=== PATIENT | female | born 1960 | race Asian ===

== ENCOUNTER 2018-05-18 07:28 | Emergency (ER) | payer OTHER, SELFPAY ==
[2018-05-18 07:39] VITALS: BP 146/76; PULSE 82; RESP 18; TEMP 36.8; O2SAT 96; BMI 28.2
--- NOTE | 2018-05-18 07:47 | DI.US.S_ITS ---
PROCEDURE: US PERIPH VENOUS LOW EXTREM LT INDICATIONS: severe pain in LLE, calf, thigh. No injury TECHNIQUE: Real-time imaging, as well as color and pulse Doppler interrogation, were performed of the lower extremity deep veins from the inguinal ligament to the popliteal fossa. COMPARISON: None. FINDINGS: The deep veins are normally compressible, and free of intraluminal thrombus. Color and pulse Doppler demonstrate normal phasic intraluminal flow. There is normal augmentation response to distal compression maneuver. IMPRESSION: No DVT in the left lower extremity. Dictated by: Myrna Negron M.D. on 05/18/2018 at 9:00 Approved by: Myrna Negron M.D. on 05/18/2018 at 9:01
--- NOTE | 2018-05-18 08:00 | ED.EXTPRO ---
HPI - Extremity Problem General Chief complaint: Extremity Injury, Lower Stated complaint: foot pain Time Seen by Provider: 05/18/18 07:41 Source: patient and family Mode of arrival: ambulatory Limitations: no limitations History of Present Illness HPI Narrative: 57-year-old nonsmoking female presents with a chief complaint of gradually worsening left lower extremity pain in the absence of any injury. For almost 2 weeks she has had worsening left foot and lower leg pain and states she has not had any traumatic injury and denies any overuse type injury. She denies any fever or chills nor nausea or vomiting. She denies any long travel or history of clots. She has no back pain or any trouble with urination, bowel control or groin numbness. She denies weakness in her leg and just states that it is hot, sharp pain that is worse with any motion. She has got a history of gout and is taking gout medicine which did not help her at all. She states this is much different than gouty flare-ups she has had in the past. MD Complaint: extremity pain Onset (ago): week(s) Pain Consistency: constant Location: left Quality: burning and stabbing Radiation: proximal Relieving factors: rest Exacerbating factors: weight bearing, walking and exertion Associated symptoms: denies other symptoms Related Data Home Medications Medication Instructions Recorded Confirmed hydrocodone-acetaminophen 0 tab PO Q6HP PRN 05/18/18 05/18/18 Previous Rx's Medication Instructions Recorded cyclobenzaprine 10 mg PO TID PRN #14 tab 05/18/18 oxycodone 5 mg PO Q4-6H PRN #14 tab 05/18/18 Allergies Allergy/AdvReac Type Severity Reaction Status Date / Time ibuprofen [From ADVIL] Allergy Unknown Verified 05/18/18 07:38 Iodine and Iodide Containing Allergy Unknown Verified 05/18/18 07:38 Produc [IODINE AND IODIDE CONTAINING PRODUC] Review of Systems Review of Systems All systems reviewed & are unremarkable except as noted in HPI and below Constitutional Denies chills, Denies fever(s), Denies lethargy and Denies weakness Eyes Denies change in vision, Denies eye discharge, Denies irritation and Denies loss of vision ENT Ears, Nose, Mouth, and Throat: Denies change in voice, Denies neck pain and Denies sore throat Cardiovascular Denies chest pain, Denies irregular heart rhythm, Denies lightheadedness, Denies palpitations, Denies dyspnea, Denies dyspnea on exertion and Denies orthopnea Respiratory Denies cough, Denies dyspnea, Denies dyspnea on exertion and Denies wheezing Gastrointestinal Gastrointestinal: Denies abdominal pain, Denies change in bowel habits, Denies diarrhea, Denies nausea and Denies vomiting Genitourinary Denies hematuria, Denies flank pain, Denies urinary incontinence and Denies urinary urgency Musculoskeletal Reports myalgias, Denies neck pain and Reports radiating pain into limb Integumentary/Breasts Denies pruritus, Denies erythema, Denies rash and Denies wounds Neurologic Denies confusion, Denies loss of vision and Denies weakness Psychiatric Denies anxiety, Denies confusion, Denies depression, Denies homicidal ideation and Denies suicidal ideation Endocrine Denies palpitations Hematologic/Lymphatic Denies easy bruising Allergic/Immunologic Denies wheezing Exam Narrative Exam Narrative: GEN: AOx3 and in mild distress EYES: Pupils are equal, round, and reactive to light and accommodation. Extraoccular muscles are intact bilaterally. There is no subconjunctival hemorrhage or exudate. CHEST: Lungs are clear to auscultation bilaterally and free of wheezes, rales, or rhonchi. Heart rate is regular rhythm, there are no murmurs, clicks, rubs, or gallops. There is no chest wall tenderness. ABD: Abdomen is soft and nontender. There is no guarding or rebound. Bowel sounds are normal in all 4 quadrants. There is no mass or organomegaly. EXT: No obvious deformity, redness, swelling or external manifestation of pain. Strong, palpable dorsalis pedis pulse. Full sensation and range of motion of toes. 5/5 strength in her lower extremity. Palpation of foot, calf or thigh are intensely painful. No rash, swelling or induration SKIN: Warm, pink, and dry. No erythema or rash Initial Vital Signs Initial Vital Signs: Vital Signs Temperature 98.2 F 05/18/18 07:39 Pulse Rate 82 05/18/18 07:39 Respiratory Rate 18 05/18/18 07:39 Blood Pressure 146/76 H 05/18/18 07:39 Pulse Oximetry 96 05/18/18 07:39 Course Orders Ordered: ED Orders 05/18/18 07:47 US periph venous low extrem lt Stat 05/18/18 08:00 Complete Blood Count AUTO DIFF Stat Erythrocyte Sedimentation Rate Stat 05/18/18 08:40 Basic Metabolic Panel Stat C-Reactive Protein Quant Stat Discontinued Medications Methylprednisolone (Solu-Medrol 125 Mg Vial) 125 mg IV NOW ONE Stop: 05/18/18 07:48 Last Admin: 05/18/18 08:14 Dose: 125 mg Oxycodone/Acetaminophen (Percocet 5/325) 1 tab PO NOW ONE Stop: 05/18/18 08:19 Last Admin: 05/18/18 08:23 Dose: 1 tab Vital Signs - 8 hr 05/18/18 07:39 05/18/18 08:40 05/18/18 09:19 Temperature 98.2 F Pulse Rate 82 67 71 Respiratory Rate 18 16 16 Blood Pressure 146/76 H Blood Pressure [Right Arm] 148/73 H 140/70 Pulse Oximetry 96 97 97 MDM - Extremity (Nontraumatic) Lab Data Result diagrams: 05/18/18 08:00 05/18/18 08:40 Lab Results 05/18/18 05/18/18 Range/Units 08:00 08:40 WBC 9.6 (4.5-11.0) X10^3/uL RBC 4.74 (4.0-5.2) X10^6/uL Hgb 13.9 (12.0-16.0) g/dL Hct 41.3 (36-46) % MCV 87.0 (80-100) fL MCH 29.3 (26-34) PG MCHC 33.6 (30-36) % RDW 12.9 (11.6-14.8) % Plt Count 261 (150-400) X10^3/uL Neut % (Auto) 63.1 (50-75) % Lymph % (Auto) 27.3 (25-40) % [place] % (Auto) 6.7 (3-14) % Eos % (Auto) 2.4 (2-4) % Baso % (Auto) 0.5 (0-2) % Neut # (Auto) 6100 H (6420-2806) /uL ESR 13 (0-20) MM/HR Sodium 143 (137-145) mmol/L Potassium 4.5 (3.4-5.1) mmol/L Chloride 102 (98-107) mmol/L Carbon Dioxide 27 (22-32) mmol/L BUN 15 (7-17) mg/dL Creatinine 0.80 (0.52-1.04) mg/dL Estimated GFR > 60.0 (>60) mL/min BUN/Creatinine Ratio 18.8 (6-22) Glucose 105 H (70-100) mg/dL Calcium 10.1 (8.4-10.2) mg/dL C-Reactive Protein 1.3 H (<1.0) mg/dL Imaging Data Venous US: Radiologist's impression: [address] [id number] Ultrasound Report Signed Patient: Jazmin Zavala AMR#: [id number] : 9Acct:[id number] Age/Sex: 57 / FDate of Service: 05/18/18 Loc: ED Accession Number: [id number] Procedure: US periph venous low extrem lt Ordering Provider: Martin Ochoa D.O. PROCEDURE: US PERIPH VENOUS LOW EXTREM LT INDICATIONS: severe pain in LLE, calf, thigh. No injury TECHNIQUE: Real-time imaging, as well as color and pulse Doppler interrogation, were performed of the lower extremity deep veins from the inguinal ligament to the popliteal fossa. COMPARISON: None. FINDINGS: The deep veins are normally compressible, and free of intraluminal thrombus. Color and pulse Doppler demonstrate normal phasic intraluminal flow. There is normal augmentation response to distal compression maneuver. IMPRESSION: No DVT in the left lower extremity. Dictated by: Myrna Negron M.D. on 05/18/2018 at 9:00 Approved by: Myrna Negron M.D. on 05/18/2018 at 9:01 [facility] Narrative Medical decision making narrative: Multiple etiologies of the patient's nontraumatic pain considered Gout considered as a diagnosis but no redness, warmth or swelling noted, therefore thought less likely Cellulitis considered as an etiology but no redness, warmth or swelling, also pain is sharp and stabbing and radiates proximally making it less likely. No elevation of white cells or fever Vascular abnormality such as DVT or arterial occlusion considered but foot is warm with good cap refill and dorsalis pedis pulse. No swelling, redness nor pallor or point of hernia. Ultrasound for DVT unremarkable. Reticular apathy considered given radiation of pain, sharp and stabbing sensation and essentially normal exam regarding inflammatory and infectious etiologies Patient given return precautions and encouraged to follow up closely with her primary Discharge Plan Departure Patient Disposition: Home Clinical Impression: Acute leg pain Instructions: DI for Leg Pain Activity Restrictions/Additional Instructions: *You have been diagnosed with [ acute left leg and foot pain] *What to do: *Take medications as directed *Follow up with your primary care provider in 2-3 days, call for an appointment. Let them know you were seen in the Emergency Department and that we ask that you be seen in follow up *Return to ER if you should have any new, worsening or concerning symptoms, such as [ worsening pain, weakness, redness, swelling, or other bothersome symptoms] Prescriptions: New cyclobenzaprine 10 mg tablet 10 mg PO TID PRN (Reason: muscle spasm) Qty: 14 RF: 0 oxycodone 5 mg tablet 5 mg PO Q4-6H PRN (Reason: pain) Qty: 14 RF: 0 No Action hydrocodone-acetaminophen 5 MG/325 MG tablet PO Q6HP PRN (Reason: pain) RF: 0
--- NOTE | 2018-05-18 08:04 | ED_ITS ---
HPI - Extremity Problem General Chief complaint: Extremity Injury, Lower Stated complaint: foot pain Time Seen by Provider: 05/18/18 07:41 Source: patient and family Mode of arrival: ambulatory Limitations: no limitations History of Present Illness HPI Narrative: 57-year-old nonsmoking female presents with a chief complaint of gradually worsening left lower extremity pain in the absence of any injury. For almost 2 weeks she has had worsening left foot and lower leg pain and states she has not had any traumatic injury and denies any overuse type injury. She denies any fever or chills nor nausea or vomiting. She denies any long travel or history of clots. She has no back pain or any trouble with urination, bowel control or groin numbness. She denies weakness in her leg and just states that it is hot, sharp pain that is worse with any motion. She has got a history of gout and is taking gout medicine which did not help her at all. She states this is much different than gouty flare-ups she has had in the past. MD Complaint: extremity pain Onset (ago): week(s) Pain Consistency: constant Location: left Quality: burning and stabbing Radiation: proximal Relieving factors: rest Exacerbating factors: weight bearing, walking and exertion Associated symptoms: denies other symptoms Related Data Home Medications Medication Instructions Recorded Confirmed hydrocodone-acetaminophen 0 tab PO Q6HP PRN 05/18/18 05/18/18 Previous Rx's Medication Instructions Recorded cyclobenzaprine 10 mg PO TID PRN #14 tab 05/18/18 oxycodone 5 mg PO Q4-6H PRN #14 tab 05/18/18 Allergies Allergy/AdvReac Type Severity Reaction Status Date / Time ibuprofen [From ADVIL] Allergy Unknown Verified 05/18/18 07:38 Iodine and Iodide Containing Allergy Unknown Verified 05/18/18 07:38 Produc [IODINE AND IODIDE CONTAINING PRODUC] Review of Systems Review of Systems All systems reviewed & are unremarkable except as noted in HPI and below Constitutional Denies chills, Denies fever(s), Denies lethargy and Denies weakness Eyes Denies change in vision, Denies eye discharge, Denies irritation and Denies loss of vision ENT Ears, Nose, Mouth, and Throat: Denies change in voice, Denies neck pain and Denies sore throat Cardiovascular Denies chest pain, Denies irregular heart rhythm, Denies lightheadedness, Denies palpitations, Denies dyspnea, Denies dyspnea on exertion and Denies orthopnea Respiratory Denies cough, Denies dyspnea, Denies dyspnea on exertion and Denies wheezing Gastrointestinal Gastrointestinal: Denies abdominal pain, Denies change in bowel habits, Denies diarrhea, Denies nausea and Denies vomiting Genitourinary Denies hematuria, Denies flank pain, Denies urinary incontinence and Denies urinary urgency Musculoskeletal Reports myalgias, Denies neck pain and Reports radiating pain into limb Integumentary/Breasts Denies pruritus, Denies erythema, Denies rash and Denies wounds Neurologic Denies confusion, Denies loss of vision and Denies weakness Psychiatric Denies anxiety, Denies confusion, Denies depression, Denies homicidal ideation and Denies suicidal ideation Endocrine Denies palpitations Hematologic/Lymphatic Denies easy bruising Allergic/Immunologic Denies wheezing Exam Narrative Exam Narrative: GEN: AOx3 and in mild distress EYES: Pupils are equal, round, and reactive to light and accommodation. Extraoccular muscles are intact bilaterally. There is no subconjunctival hemorrhage or exudate. CHEST: Lungs are clear to auscultation bilaterally and free of wheezes, rales, or rhonchi. Heart rate is regular rhythm, there are no murmurs, clicks, rubs, or gallops. There is no chest wall tenderness. ABD: Abdomen is soft and nontender. There is no guarding or rebound. Bowel sounds are normal in all 4 quadrants. There is no mass or organomegaly. EXT: No obvious deformity, redness, swelling or external manifestation of pain. Strong, palpable dorsalis pedis pulse. Full sensation and range of motion of toes. 5/5 strength in her lower extremity. Palpation of foot, calf or thigh are intensely painful. No rash, swelling or induration SKIN: Warm, pink, and dry. No erythema or rash Initial Vital Signs Initial Vital Signs: Vital Signs Temperature 98.2 F 05/18/18 07:39 Pulse Rate 82 05/18/18 07:39 Respiratory Rate 18 05/18/18 07:39 Blood Pressure 146/76 H 05/18/18 07:39 Pulse Oximetry 96 05/18/18 07:39 Course Orders Ordered: ED Orders 05/18/18 07:47 US periph venous low extrem lt Stat 05/18/18 08:00 Complete Blood Count AUTO DIFF Stat Erythrocyte Sedimentation Rate Stat 05/18/18 08:40 Basic Metabolic Panel Stat C-Reactive Protein Quant Stat Discontinued Medications Methylprednisolone (Solu-Medrol 125 Mg Vial) 125 mg IV NOW ONE Stop: 05/18/18 07:48 Last Admin: 05/18/18 08:14 Dose: 125 mg Oxycodone/Acetaminophen (Percocet 5/325) 1 tab PO NOW ONE Stop: 05/18/18 08:19 Last Admin: 05/18/18 08:23 Dose: 1 tab Vital Signs - 8 hr 05/18/18 07:39 05/18/18 08:40 05/18/18 09:19 Temperature 98.2 F Pulse Rate 82 67 71 Respiratory Rate 18 16 16 Blood Pressure 146/76 H Blood Pressure [Right Arm] 148/73 H 140/70 Pulse Oximetry 96 97 97 MDM - Extremity (Nontraumatic) Lab Data Result diagrams: 05/18/18 08:00 05/18/18 08:40 Lab Results 05/18/18 05/18/18 Range/Units 08:00 08:40 WBC 9.6 (4.5-11.0) X10^3/uL RBC 4.74 (4.0-5.2) X10^6/uL Hgb 13.9 (12.0-16.0) g/dL Hct 41.3 (36-46) % MCV 87.0 (80-100) fL MCH 29.3 (26-34) PG MCHC 33.6 (30-36) % RDW 12.9 (11.6-14.8) % Plt Count 261 (150-400) X10^3/uL Neut % (Auto) 63.1 (50-75) % Lymph % (Auto) 27.3 (25-40) % [place] % (Auto) 6.7 (3-14) % Eos % (Auto) 2.4 (2-4) % Baso % (Auto) 0.5 (0-2) % Neut # (Auto) 6100 H (5264-7079) /uL ESR 13 (0-20) MM/HR Sodium 143 (137-145) mmol/L Potassium 4.5 (3.4-5.1) mmol/L Chloride 102 (98-107) mmol/L Carbon Dioxide 27 (22-32) mmol/L BUN 15 (7-17) mg/dL Creatinine 0.80 (0.52-1.04) mg/dL Estimated GFR > 60.0 (>60) mL/min BUN/Creatinine Ratio 18.8 (6-22) Glucose 105 H (70-100) mg/dL Calcium 10.1 (8.4-10.2) mg/dL C-Reactive Protein 1.3 H (<1.0) mg/dL Imaging Data Venous US: Radiologist's impression: [address] [address] Ultrasound Report Signed Patient: Jazmin Zavala AMR#: [id number] : 9Acct:[id number] Age/Sex: 57 / FDate of Service: 05/18/18 Loc: ED Accession Number: [id number] Procedure: US periph venous low extrem lt Ordering Provider: Martin Ochoa D.O. PROCEDURE: US PERIPH VENOUS LOW EXTREM LT INDICATIONS: severe pain in LLE, calf, thigh. No injury TECHNIQUE: Real-time imaging, as well as color and pulse Doppler interrogation, were performed of the lower extremity deep veins from the inguinal ligament to the popliteal fossa. COMPARISON: None. FINDINGS: The deep veins are normally compressible, and free of intraluminal thrombus. Color and pulse Doppler demonstrate normal phasic intraluminal flow. There is normal augmentation response to distal compression maneuver. IMPRESSION: No DVT in the left lower extremity. Dictated by: Myrna Negron M.D. on 05/18/2018 at 9:00 Approved by: Myrna Negron M.D. on 05/18/2018 at 9:01 [facility] Narrative Medical decision making narrative: Multiple etiologies of the patient's nontraumatic pain considered Gout considered as a diagnosis but no redness, warmth or swelling noted, therefore thought less likely Cellulitis considered as an etiology but no redness, warmth or swelling, also pain is sharp and stabbing and radiates proximally making it less likely. No elevation of white cells or fever Vascular abnormality such as DVT or arterial occlusion considered but foot is warm with good cap refill and dorsalis pedis pulse. No swelling, redness nor pallor or point of hernia. Ultrasound for DVT unremarkable. Reticular apathy considered given radiation of pain, sharp and stabbing sensation and essentially normal exam regarding inflammatory and infectious etiologies Patient given return precautions and encouraged to follow up closely with her primary Discharge Plan Departure Patient Disposition: Home Clinical Impression: Acute leg pain Instructions: DI for Leg Pain Activity Restrictions/Additional Instructions: *You have been diagnosed with [ acute left leg and foot pain] *What to do: *Take medications as directed *Follow up with your primary care provider in 2-3 days, call for an appointment. Let them know you were seen in the Emergency Department and that we ask that you be seen in follow up *Return to ER if you should have any new, worsening or concerning symptoms , such as [ worsening pain, weakness, redness, swelling, or other bothersome symptoms] Prescriptions: New cyclobenzaprine 10 mg tablet 10 mg PO TID PRN (Reason: muscle spasm) Qty: 14 RF: 0 oxycodone 5 mg tablet 5 mg PO Q4-6H PRN (Reason: pain) Qty: 14 RF: 0 No Action hydrocodone-acetaminophen 5 MG/325 MG tablet PO Q6HP PRN (Reason: pain) RF: 0
[2018-05-18] MEDS: methylPREDNISolone 125 MG/2 ML VIAL IV (08:14)
[2018-05-18 08:16] LABS: Add Manual Diff / Slide Review NO; Basophils Percent Auto 0.5 % (0-2); Eosinophils Percent Auto 2.4 % (2-4); Hematocrit 41.3 % (36-46); Hemoglobin 13.9 g/dL (12.0-16.0); Lymphocytes Percent Auto 27.3 % (25-40); Mean Corpuscular HGB Conc 33.6 % (30-36); Mean Corpuscular Hemoglobin 29.3 PG (26-34); Monocytes Percent Auto 6.7 % (3-14); Neutrophils Absolute Auto 6100 /uL (3000-5900); Neutrophils Percent Auto 63.1 % (50-75); Platelet Count 261 X10^3/uL (150-400); Red Blood Cell Count 4.74 X10^6/uL (4.0-5.2); Red Cell Distribution Width 12.9 % (11.6-14.8); White Blood Cell Count 9.6 X10^3/uL (4.5-11.0)
[2018-05-18] MEDS: OXYCODONE/ACETAMINOPHEN 5/325 TABLET 1 TAB PO (08:23)
--- NOTE | 2018-05-18 08:36 | PC.NURSE ---
woke up this morning at 2am , sudden foot pain , radiating to her upper leg. denies injuries, denies long distance travel, hx of gout , hypertension. denies cp. sob.denies fever/chills or vomiting.
[2018-05-18 08:39] LABS: Erythrocyte Sedimentation Rate 13 MM/HR (0-20)
[2018-05-18 08:40] VITALS: BP 148/73; PULSE 67; RESP 16; O2SAT 97
[2018-05-18 09:09] LABS: BUN Creatinine Ratio 18.8 (6-22); Blood Urea Nitrogen 15 mg/dL (7-17); C-Reactive Protein Quant 1.3 mg/dL (<1.0); Calcium 10.1 mg/dL (8.4-10.2); Carbon Dioxide 27 mmol/L (22-32); Chloride 102 mmol/L (98-107); Estimated Glomerular Filt Rate > 60.0 mL/min (>60); Glucose 105 mg/dL (70-100); Potassium 4.5 mmol/L (3.4-5.1); Sodium 143 mmol/L (137-145)
[2018-05-18 09:14] LABS: HEMOLYSIS 51 (0-50)
[2018-05-18 09:19] VITALS: BP 140/70; PULSE 71; RESP 16; O2SAT 97
== END 2018-05-18 09:50 | disposition home or self-care (01) ==
PROVIDERS: Emergency Provider Emergency Medicine; PCP Physician Assistant Medical
DX: M79.605 Pain in left leg (principal)
CPT/HCPCS: 36415; 36591; 80048; 85025; 85651; 86140; 93971; 96374; 99282; 99284; J2930

== ENCOUNTER 2018-11-30 09:06 | Emergency (ER) | payer OTHER, SELFPAY ==
[2018-11-30 09:20] VITALS: BP 156/57; PULSE 71; RESP 20; TEMP 36.6; O2SAT 95
--- NOTE | 2018-11-30 09:25 | DI.RAD.S_ITS ---
PROCEDURE: XR SHOULDER RT MIN 2V INDICATIONS: pain TECHNIQUE: 3 views of the shoulder were acquired. COMPARISON: [facility], , ABDOMEN ACUTE SERIES, 02/04/2017, 6:54. FINDINGS: Bones: No fractures or dislocations, but there is moderately severe degenerative a.c. joint osteoarthritis, with mild to moderate distortion at the acromial margin greater than at the clavicular margin, potentially a manifestation of prior trauma and secondary osteoarthritis.. No suspicious bony lesions. Visualized ribs appear intact. Soft tissues: No suspicious soft tissue calcifications. IMPRESSION: No acute disease is found. 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 A comparison appearance of the a.c. joint from January 2017 is available from the abdomen plain film series (which includes a chest plain film) and the degree of distortion present was appreciably less at that time. Dictated by: Gurinder Obrien M.D. on 11/30/2018 at 9:58 Approved by: Gurinder Obrien M.D. on 11/30/2018 at 10:00
--- NOTE | 2018-11-30 09:33 | ED.UPPEXIN ---
HPI - Extremity Injury (Upper) General Chief Complaint: Extremity Injury, Upper Stated Complaint: Right shoulder pain Time Seen by Provider: 11/30/18 09:11 Source: patient Mode of arrival: ambulatory Limitations: no limitations History of Present Illness HPI narrative: Patient is a 58-year-old female who presents with right shoulder pain. It has been ongoing for last 4 days. She is at hurts every time she moves she has significant decreased range of motion. No chest pain or shortness of breath. No numbness or tingling. She has denies any injury although she works out with weights daily. She has significant decreased AB duction. complaint: injury to: right and shoulder Relieving factors: none Exacerbating factors: movement of extremity Related Data Allergies Allergy/AdvReac Type Severity Reaction Status Date / Time ibuprofen [From ADVIL] Allergy Unknown Verified 05/18/18 07:38 Iodine and Iodide Containing Allergy Unknown Verified 05/18/18 07:38 Produc [IODINE AND IODIDE CONTAINING PRODUC] Review of Systems Review of Systems ROS Unobtainable: All systems reviewed & are unremarkable except as noted in HPI and below Constitutional Denies chills, Denies fever(s), Denies lethargy and Denies weakness Eyes Denies change in vision, Denies eye discharge, Denies irritation and Denies loss of vision ENT Ears, Nose, Mouth, and Throat: Denies change in voice, Denies neck pain and Denies sore throat Cardiovascular Denies chest pain, Denies irregular heart rhythm, Denies lightheadedness, Denies palpitations, Denies dyspnea, Denies dyspnea on exertion and Denies orthopnea Respiratory Denies cough, Denies dyspnea, Denies dyspnea on exertion and Denies wheezing Gastrointestinal Gastrointestinal: Denies abdominal pain, Denies change in bowel habits, Denies diarrhea, Denies nausea and Denies vomiting Genitourinary Denies hematuria, Denies flank pain, Denies urinary incontinence and Denies urinary urgency Musculoskeletal Reports as per HPI and Denies neck pain Integumentary/Breasts Denies pruritus, Denies erythema, Denies rash and Denies wounds Neurologic Denies loss of vision and Denies weakness Endocrine Denies palpitations Allergic/Immunologic Denies wheezing PFSH Medical History Patient denies significant medical history (Acute) Social History Smoking Status: Never smoker Social History Smoking Status: Never smoker Exam Initial Vital Signs Initial Vital Signs: Vital Signs Temperature 97.9 F 11/30/18 09:20 Pulse Rate 71 11/30/18 09:20 Respiratory Rate 20 11/30/18 09:20 Blood Pressure 156/57 H 11/30/18 09:20 Pulse Oximetry 95 11/30/18 09:20 GENERAL: Well-appearing, well-nourished and in no acute distress. HEENT: Head atraumatic,EOMI, pupils reactive, face symmetric, moist mucous membranes CARDIOVASCULAR: Regular rate and rhythm without murmurs, rubs or gallops. RESPIRATORY: Breath sounds equal bilaterally, no wheezes rales or rhonchi. EXTREMITIES: Normal range of motion, no clubbing or edema. Neurovascularly intact Right shoulder: Tender in AC joint clavicle has no step-off. Significant decreased abduction flexion and extension. Neurovascularly intact. NEUROLOGICAL: Alert and oriented x4.Normal gait and speech. Cranial nerves II through XII grossly intact. SKIN: Warm, dry, no laceration, no petechiae, no rashes or lesions. Course Orders Ordered: ED Orders 11/30/18 09:25 XR shoulder RT min 2V Stat Discontinued Medications Acetaminophen (Tylenol) 975 mg PO NOW ONE Stop: 11/30/18 09:32 Last Admin: 11/30/18 10:03 Dose: 975 mg Vital Signs - 8 hr 11/30/18 09:20 Temperature 97.9 F Pulse Rate 71 Respiratory Rate 20 Blood Pressure 156/57 H Pulse Oximetry 95 MDM - Extremity Injury (Upper) Imaging Data shoulder: Radiologist's impression: PROCEDURE: XR SHOULDER RT MIN 2V INDICATIONS: pain TECHNIQUE: 3 views of the shoulder were acquired. COMPARISON: [facility], CR, ABDOMEN ACUTE SERIES, 02/04/2017, 6:54. FINDINGS: Bones: No fractures or dislocations, but there is moderately severe degenerative a.c. joint osteoarthritis, with mild to moderate distortion at the acromial margin greater than at the clavicular margin, potentially a manifestation of prior trauma and secondary osteoarthritis.. No suspicious bony lesions. Visualized ribs appear intact. Soft tissues: No suspicious soft tissue calcifications. IMPRESSION: No acute disease is found. 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 A comparison appearance of the a.c. joint from January 2017 is available from the abdomen plain film series (which includes a chest plain film) and the degree of distortion present was appreciably less at that time. Dictated by: Gurinder Obrien M.D. on 11/30/2018 at 9:58 Approved by: Gurinder Obrien M.D. on 11/30/2018 at 10:0 MDM Narrative Medical decision making narrative: Patient has significant pain with movement, musculoskeletal. She does lift weights daily but has not lifted for the last few days. I recommended that she not do that. Discharge Plan Departure Patient Disposition: Home Clinical Impression: Sprain of right shoulder Qualifiers: Encounter type: initial encounter Shoulder sprain type: unspecified sprain Qualified Code(s): S43.401A - Unspecified sprain of right shoulder joint, initial encounter Discharge Date/Time: 11/30/18 10:43 Interventions: ED Discharge Assessment Last Done: 11/30/18 10:42 Instructions: DI for Shoulder Sprain Activity Restrictions/Additional Instructions: *You have been diagnosed with right shoulder sprain *What to do: Ice 20 minutes at a time, light movement of shoulder is encouraged multiple times a day. Advised against strenuous activity or weight lifting until improved. May require physical therapy and possible future orthopedic consult *Continue to take medications as directed Tylenol 650 mg every 4-6 hours if needed for pain *Follow up with your primary care provider in 2-3 days *Return to ER if you should have numbness tingling, weakness or any new, worsening or concerning symptoms Referrals: Divya Ceja PA-C [Primary Care Provider] -
[2018-11-30] MEDS: ACETAMINOPHEN 325 MG TABLET 975 MG PO (10:03)
== END 2018-11-30 10:43 | disposition home or self-care (01) ==
PROVIDERS: Emergency Provider Emergency Medicine; PCP Physician Assistant Medical
DX: S43.401A Unspecified sprain of right shoulder joint, initial encounter (principal)
CPT/HCPCS: 73030; 99282; 99283

== ENCOUNTER 2019-04-17 13:22 | Emergency (ER) | payer OTHER, SELFPAY ==
[2019-04-17] VITALS (7 sets, daily range): BP systolic 104–138; BP diastolic 44–65; PULSE 69–76; RESP 13–19; O2SAT 96–100; BMI 27.8
--- NOTE | 2019-04-17 13:36 | DI.CT.S_ITS ---
PROCEDURE: CT HEAD/BRAIN WO CON INDICATIONS: syncope x3 with headache TECHNIQUE: Noncontrast 4.5 mm thick angled axial sections acquired from the foramen magnum to the vertex, with coronal and sagittal reformats. For radiation dose reduction, the following was used: automated exposure control, adjustment of mA and/or kV according to patient size. COMPARISON: [facility], CT, HEAD WITHOUT CONTRAST, 10/21/2017, 16:08. FINDINGS: Image quality: Excellent. CSF spaces: Basal cisterns are patent. No extra-axial fluid collections. The ventricles are symmetric in size and shape. Brain: No intracranial bleeds or masses. There is cerebral volume loss for age, with resultant ventricular and sulcal prominence. There are periventricular and deep white matter chronic small vessel ischemic changes. There is intracranial internal carotid artery atherosclerosis. Skull and face: Calvarium and visualized facial bones appear intact, without suspicious lesions. Sinuses: Visualized sinuses and mastoids are clear. IMPRESSION: Normal intracranial head CT for age, without acute intracranial hemorrhage. Dictated by: Jeffy Vela M.D. on 04/17/2019 at 13:21 Approved by: Jeffy Vela M.D. on 04/17/2019 at 13:23
[2019-04-17 14:16] LABS: Add Manual Diff / Slide Review NO; Basophils Absolute Auto 100 /uL (0-100); Basophils Percent Auto 0.6 % (0-2); Eosinophils Absolute Auto 100 /uL (0-450); Eosinophils Percent Auto 1.2 % (2-4); Hematocrit 39.1 % (36-46); Hemoglobin 13.1 g/dL (12.0-16.0); Lymphocytes Absolute Auto 2200 /uL (1100-4500); Lymphocytes Percent Auto 21.2 % (25-40); Mean Corpuscular HGB Conc 33.6 % (30-36); Mean Corpuscular Hemoglobin 29.7 PG (26-34); Mean Corpuscular Volume 88.2 fL (80-100); Monocytes Absolute Auto 600 /uL (0-900); Monocytes Percent Auto 5.7 % (3-14); Neutrophils Absolute Auto 7500 /uL (1500-7000); Neutrophils Percent Auto 71.3 % (50-75); Platelet Count 250 X10^3/uL (150-400); Red Blood Cell Count 4.43 X10^6/uL (4.0-5.2); Red Cell Distribution Width 13.3 % (11.6-14.8); White Blood Cell Count 10.5 X10^3/uL (4.5-11.0)
[2019-04-17] MEDS: SODIUM CHLORIDE 0.9% 1,000 ML 1000 ML IV (14:30)
[2019-04-17 14:32] LABS: D Dimer < 200 ng/mL (<230)
[2019-04-17 14:33] LABS: Alanine Aminotransferase 25 IU/L (9-52); Albumin 4.6 g/dL (3.5-5.0); Albumin Globulin Ratio 1.4 (1.0-2.8); Alkaline Phosphatase 78 U/L (38-126); Aspartate Aminotransferase 26 IU/L (14-36); Bilirubin Total 0.6 mg/dL (0.2-1.3); Blood Urea Nitrogen 18 mg/dL (7-17); Carbon Dioxide 26 mmol/L (22-32); Chloride 101 mmol/L (98-107); Creatine Kinase 126 U/L (30-135); Estimated Glomerular Filt Rate 56.7 mL/min (>60); Globulin 3.4 g/dL (1.7-4.1); Glucose 126 mg/dL (70-100); HEMOLYSIS < 15 (0-50); Potassium 4.7 mmol/L (3.4-5.1); Sodium 139 mmol/L (137-145)
[2019-04-17 14:44] LABS: Troponin I < 0.012 ng/mL (0.01-0.034)
[2019-04-17 14:48] LABS: CKMB % Relative Index 0.7 % (1.5-5.0); Creatine Kinase MB 0.91 ng/mL (<2.37)
--- NOTE | 2019-04-17 17:24 | ED_ITS ---
HPI - Syncope General Chief Complaint: Syncope Stated Complaint: Syncope Time Seen by Provider: 04/17/19 13:23 Source: patient Mode of arrival: EMS Limitations: no limitations History of Present Illness HPI narrative: 58-year-old female nonsmoker with history of hyperlipidemia presents by EMS for evaluation of a syncopal episode while working out earlier today. She states she was in her normal state of health in doing a normal workout routine when she began to feel dizzy, weak and lightheaded and then had a syncopal episode. On arrival EMS noted her blood pressure to be in the 90s and subsequent checks noted to slightly rise into the low 100s. She denies any recent illness such as nausea, vomiting or diarrhea. She has had no fever or chills. She denies any chest pain. She states she has done this exact workout routine on multiple occasions before. She denies any new diet or medications. She is essentially asymptomatic prior to her arrival. MD complaint: loss of consciousness and collapsed Onset (ago): hour(s) -: second(s) Prodromal symptoms: lightheaded Witnessed: yes - by bystander Context: during exertion Current symptoms: none and back to baseline Treatments prior to arrival: IV fluids Related Data Home Medications Medication Instructions Recorded Confirmed Bp Med 1 tab PO DAILY 04/17/19 04/17/19 Multivitamin 50 Plus 1 tab PO DAILY 04/17/19 04/17/19 Synthroid 1 tab PO DAILY 04/17/19 04/17/19 Vitamin C 1 tab PO DAILY 04/17/19 04/17/19 Vitamin D3 1 cap PO DAILY 04/17/19 04/17/19 atorvastatin 1 tab PO QPM 04/17/19 04/17/19 montelukast 1 tab PO DAILY 04/17/19 04/17/19 Allergies Allergy/AdvReac Type Severity Reaction Status Date / Time ibuprofen [From ADVIL] Allergy Unknown Verified 05/18/18 07:38 Iodine and Iodide Containing Allergy Unknown Verified 05/18/18 07:38 Produc [IODINE AND IODIDE CONTAINING PRODUC] Review of Systems Constitutional Constitutional: Denies chills, Denies fatigue, Denies fever(s), Denies frequent falls, Denies lethargy and Denies weakness Eyes Eyes: Denies change in vision, Denies eye discharge, Denies irritation and Denies loss of vision ENT Ears, Nose, Mouth, and Throat: Denies change in voice, Denies dizziness, Denies neck pain, Denies sore throat and Denies throat swelling Cardiovascular Cardiovascular: Denies chest pain, Reports syncope, Denies irregular heart rhythm, Reports lightheadedness, Denies palpitations, Denies dyspnea, Denies dyspnea on exertion and Denies orthopnea Respiratory Respiratory: Denies cough, Denies dyspnea, Denies dyspnea on exertion and Denies wheezing Gastrointestinal Gastrointestinal: Denies abdominal pain, Denies change in bowel habits, Denies diarrhea, Denies nausea and Denies vomiting Genitourinary Genitourinary: Denies hematuria, Denies flank pain, Denies urinary incontinence and Denies urinary urgency Musculoskeletal Musculoskeletal: Denies back pain, Denies muscle weakness, Denies neck pain, Denies numbness and Denies tingling Integumentary/Breasts Skin/Breast: Denies pruritus, Denies erythema, Denies rash and Denies wounds Neurologic Neurologic: Denies behavioral changes, Denies confusion, Denies dizziness, Reports syncope, Denies frequent falls, Denies loss of vision, Denies numbness, Denies tingling and Denies weakness Psychiatric Psychiatric: Denies anxiety, Denies behavioral changes, Denies confusion, Denies depression, Denies homicidal ideation and Denies suicidal ideation Endocrine Endocrine: Denies fatigue, Denies flushing and Denies palpitations Hematologic/Lymphatic Hematologic/Lymphatic: Denies easy bruising Allergic/Immunologic Allergic/Immunologic: Denies urticaria, Denies throat swelling and Denies wheezing PFSH Medical History Patient denies significant medical history (Acute) Social History Smoking Status: Never smoker Social History Smoking Status: Never smoker Exam Narrative Exam Narrative: GENERAL: [58] year old patient appears stated age. Well-nourished, well-developed patient, in mild distress. HEAD: Atraumatic. Normocephalic. EYES: Pupils equal round and reactive. Extraocular motions intact. No scleral icterus. No injection or drainage. ENT: Nose without bleeding, purulent drainage. Throat without erythema, tonsillar hypertrophy or exudate. Airway patent. NECK: Trachea midline. Non tender CARDIOVASCULAR: Regular rate and rhythm without murmurs, gallops, or rubs. RESPIRATORY: Clear to auscultation. Breath sounds equal bilaterally. No wheezes, rales, or rhonchi. GASTROINTESTINAL: Abdomen soft, non-tender, nondistended. EXTREMITIES: No edema or joint tenderness. BACK: Nontender without deformity or crepitance. No flank tenderness. NEURO: AOx3. SKIN: No rash or erythema of visible areas Initial Vital Signs Initial Vital Signs: Vital Signs Pulse Rate 70 04/17/19 13:30 Respiratory Rate 17 04/17/19 13:30 Blood Pressure 104/44 L 04/17/19 13:30 Pulse Oximetry 100 04/17/19 13:30 Course Orders Ordered: Discontinued Medications Sodium Chloride (Normal Saline 0.9%) 1,000 mls @ 1,000 mls/hr IV BOLUS ONE Stop: 04/17/19 14:27 Last Infusion: 04/17/19 16:00 Dose: 0 mls/hr Documented by: Admin: 04/17/19 14:30 Dose: 1,000 mls/hr Documented by: ROSANNE Reevaluation(s) Reevaluation #1: Patient continues to be asymptomatic. She is ambulatory without difficulty and orthostatics are unremarkable. Vital Signs Vital signs: Vital Signs - 8 hr 04/17/19 13:30 04/17/19 13:56 04/17/19 15:44 Pulse Rate 70 76 74 Pulse Rate [Orthostatic Lying] Pulse Rate [Orthostatic Sitting] Pulse Rate [Orthostatic Standing] Respiratory Rate 17 16 13 Blood Pressure 104/60 Blood Pressure [Left Arm] 104/44 L 131/61 Blood Pressure [Orthostatic Lying] Blood Pressure [Orthostatic Sitting] Blood Pressure [Orthostatic Standing] Pulse Oximetry 100 96 100 04/17/19 16:00 04/17/19 17:00 04/17/19 17:14 Pulse Rate 72 69 Pulse Rate [Orthostatic Lying] 70 Pulse Rate [Orthostatic Sitting] 73 Pulse Rate [Orthostatic Standing] 72 Respiratory Rate 16 14 Blood Pressure Blood Pressure [Left Arm] 114/62 138/65 Blood Pressure [Orthostatic Lying] 112/57 L Blood Pressure [Orthostatic Sitting] 130/61 Blood Pressure [Orthostatic Standing] 138/65 Pulse Oximetry 99 97 MDM - Syncope Lab Data Result diagrams: 04/17/19 14:11 04/17/19 14:11 Labs: Lab Results 04/17/19 04/17/19 04/17/19 Range/Units 14:11 14:11 14:11 WBC 10.5 (4.5-11.0) X10^3/uL RBC 4.43 (4.0-5.2) X10^6/uL Hgb 13.1 (12.0-16.0) g/dL Hct 39.1 (36-46) % MCV 88.2 (80-100) fL MCH 29.7 (26-34) PG MCHC 33.6 (30-36) % RDW 13.3 (11.6-14.8) % Plt Count 250 (150-400) X10^3/uL Neut % (Auto) 71.3 (50-75) % Lymph % (Auto) 21.2 L (25-40) % [place]wood % (Auto) 5.7 (3-14) % Eos % (Auto) 1.2 L (2-4) % Baso % (Auto) 0.6 (0-2) % Neut # (Auto) 7500 H (7606-9971) /uL Lymph # (Auto) 2200 (6689-7536) /uL [place]wood # (Auto) 600 (0-900) /uL Eos # (Auto) 100 (0-450) /uL Baso # (Auto) 100 (0-100) /uL D-Dimer < 200 (<230) ng/mL Sodium 139 (137-145) mmol/L Potassium 4.7 (3.4-5.1) mmol/L Chloride 101 (98-107) mmol/L Carbon Dioxide 26 (22-32) mmol/L BUN 18 H (7-17) mg/dL Creatinine 1.00 (0.52-1.04) mg/dL Estimated GFR 56.7 L (>60) mL/min BUN/Creatinine Ratio 18.0 (6-22) Glucose 126 H (70-100) mg/dL Calcium 10.0 (8.4-10.2) mg/dL Total Bilirubin 0.6 (0.2-1.3) mg/dL AST 26 (14-36) IU/L ALT 25 (9-52) IU/L Alkaline Phosphatase 78 (38-126) U/L Total Creatine Kinase 126 (30-135) U/L CK-MB (CK-2) 0.91 (<2.37) ng/mL CK-MB (CK-2) Rel Index 0.7 L (1.5-5.0) % Troponin I < 0.012 (0.01-0.034) ng/mL Total Protein 8.0 (6.3-8.2) g/dL Albumin 4.6 (3.5-5.0) g/dL Globulin 3.4 (1.7-4.1) g/dL Albumin/Globulin Ratio 1.4 (1.0-2.8) Point of Care Testing Glucose POC 119 Urine Dip Bedside Urine Glucose Negative Bedside Urine Bilirubin - Negative Bedside Urine Ketone - Negative Urine Specific [place] 1.015 Bedside Urine Occult Blood - Negative Bedside Urine pH 6 Bedside Urine Protein +/- 15 Bedside Urine Urobilinogen - Negative Bedside Urine Nitrite - Negative Bedside Urine Leukocytes - Negative Esterase MDM Narrative Medical decision making narrative: Multiple etiologies for patient's symptoms considered including: [Orthostatic hypotension versus dehydration versus myocardial infarction versus tachyarrhythmia versus electrolyte abnormality versus other] Patient's symptoms improved or duration of stay with above-stated therapies. Findings and discharge diagnosis discussed with patient/family followed by verbalization of understanding Return precautions discussed with patient/family whom verbalize understanding. Discharge Plan Departure Patient Disposition: Home Clinical Impression: Acute dehydration Syncope Qualifiers: Syncope type: unspecified Qualified Code(s): R55 - Syncope and collapse Discharge Date/Time: 04/17/19 18:08 Instructions: DI for Syncope in Adults (Fainting) Activity Restrictions/Additional Instructions: *You have been diagnosed with [ syncope ] *What to do: *Take medications as directed *Follow up with your primary care provider in 2-3 days, call for an appointment. Let them know you were seen in the Emergency Department and that we ask that you be seen in follow up *Return to ER if you should have any new, worsening or concerning symptoms Prescriptions: No Action Bp Med 1 tab PO DAILY RF: 0 Multivitamin 50 Plus 1 tab PO DAILY RF: 0 Synthroid 1 tab PO DAILY RF: 0 Vitamin C 1 tab PO DAILY RF: 0 Vitamin D3 1 cap PO DAILY RF: 0 atorvastatin 1 tab PO QPM RF: 0 montelukast 1 tab PO DAILY RF: 0 Referrals: Divya Ceja PA-C [Primary Care Provider] -
--- NOTE | 2019-04-17 17:53 | PC.NURSE ---
PT ambulating with steady gait. 1725 hrs
== END 2019-04-17 18:08 | disposition home or self-care (01) ==
PROVIDERS: Emergency Provider Emergency Medicine; PCP Physician Assistant Medical
DX: E86.0 Dehydration (principal); R55 Syncope and collapse
CPT/HCPCS: 36415; 70450; 80053; 81003; 82550; 82553; 82962; 84484; 85025; 85379; 93005; 96360; 99284; 99285

== ENCOUNTER → 2019-05-09 15:38 | Outpatient (CLI) | payer OTHER, SELFPAY ==
--- NOTE | 2019-05-09 | DI.ECHO.S_ITS ---
[facility] +---------+ : : [id number] : : : : [id number] : : : : Phone: [phone] Echocardiogram Report + + :Name: ANGELLA MONTES DE OCA Study Date: 05/09/2019 Height: 58 in : :[facility] Weight: 135 lb : : Gender: Female BSA: 1.5 m2 : :: 1960 Age: 58 yrs BP: 118/62 mmHg: :Reason For Study: SYNCOPE AND COLLAPSE : : Performed By: Wu Sandy : :Referring: JONATHAN PENA : + + Interpretation Summary The left ventricle is normal in size, wall thickness, and systolic function without any focal wall motion abnormalities with the ejection fraction visually estimated to be 65-70%. Diastolic parameters suggest a relaxation abnormality of the left ventricle, consistent with probable normal filling pressures. The right ventricle is normal in size and function. Pulmonary artery pressures cannot be estimated because of the lack of a measurable TR jet velocity but the IVC suggests a CVP of around 3 mmHg. The left atrium is mildly dilated. There is no significant valvular heart disease. Procedure: A two-dimensional transthoracic echocardiogram with color flow and Doppler was performed. The study quality was technically good. There is no prior echocardiogram noted for this patient. The patient was in normal sinus rhythm during the exam. Left Ventricle: The left ventricle is normal in size, wall thickness, and systolic function without any focal wall motion abnormalities. The ejection fraction is estimated to be 65-70%. Diastolic parameters suggest a relaxation abnormality of the left ventricle, consistent with probable normal filling pressures. Right Ventricle: The right ventricle is normal in size and function. Atria: The left atrium is mildly dilated. Right atrial size is normal. The interatrial septum is intact with no evidence for an atrial septal defect. Mitral Valve: There is mild mitral annular calcification. The mitral valve leaflets appear mildly thickened, but open well. The mitral valve leaflets are slightly calcified. There is trace mitral regurgitation. Aortic Valve: The aortic valve is trileaflet. The aortic valve opens well. There is trace aortic regurgitation. Tricuspid Valve: The tricuspid valve is normal in structure and function. There is trace tricuspid regurgitation. Pulmonary artery pressures cannot be estimated because of the lack of a measurable TR jet velocity but the IVC suggests a CVP of around 3 mmHg. Pulmonic Valve: The pulmonic valve is normal in structure and function. There is trace pulmonic regurgitation. There is no significant valvular heart disease. Great Vessels: The aortic root is normal size. The dimensions of the ascending aorta are normal. The pulmonary artery is normal size. The IVC is of normal diameter and collapses greater than 50% with a sniff. This suggests a low right atrial pressure of 3 mm Hg. Pericardium/ Pleura There is no pericardial effusion. There is no pleural effusion. MMode/2D Measurements & Calculations LVIDd: 4.4 cm LVOT diam: 2.0 cm LVIDs: 2.4 cm Ao root diam: 2.7 cm FS: 45.5 % Aortic Jxn: 2.2 cm EPSS: 0.22 cm asc Aorta Diam: 2.8 cm IVSd: 0.97 cm Ao Arch Diam (Prox Trans): 2.8 cm LVPWd: 0.76 cm LV castillo. diameter/BSA (cm/m^2): 2.8 LV sys. diameter/BSA (cm/m^2): 1.6 LA dimension: 3.4 cm RA long axis: 4.3 cm LA A2 area: 19.0 cm2 RA area: 12.9 cm2 LA A4 area: 19.2 cm2 RA vol: 32.8 ml LA length (vol): 5.2 cm RA : 21.3 ml/m2 LA vol: 59.7 ml IVC diam: 1.4 cm LA vol index: 38.8 ml/m2 RVD1 (basal): 3.4 cm RVD2 (mid): 3.0 cm TAPSE: 1.9 cm Doppler Measurements & Calculations Ao V2 max: 149.7 cm/sec LVOT Max Joel: 124.1 cm/sec Ao V2 mean: 107.4 cm/sec LV V1 max P.2 mmHg Ao max P.0 mmHg LV V1 VTI: 25.8 cm Ao mean P.0 mmHg KSENIA(I,D): 2.6 cm2 Ao V2 VTI: 32.8 cm KSENIA(V,D): 2.7 cm2 sev ratio: 0.79 KSENIA indexed to BSA (cm^2/m^2): 1.7 MV E max joel: 104.2 cm/sec TR max joel: 206.1 cm/sec MV A max joel: 105.1 cm/sec TR max P.0 mmHg MV E/A: 0.99 PA V2 max: 101.7 cm/sec Med Peak E' Joel: 7.0 cm/sec PA V2 mean: 66.0 cm/sec E/E' med: 14.9 PA mean P.0 mmHg Lat Peak E' Joel: 7.5 cm/sec PA pr(Accel): 41.6 mmHg E/E' lat: 13.8 PA Accel Time: 0.08 sec E/e' average: 14.3 MV dec time: 0.17 sec SV(LVOT): 83.9 ml Reading Physician:CASSANDRA
== END ==
PROVIDERS: PCP Physician Assistant Medical; Visit Provider Physician Assistant Medical
DX: R55 Syncope and collapse (principal); R07.9 Chest pain, unspecified
CPT/HCPCS: 93306

== ENCOUNTER → 2019-07-05 10:37 | Outpatient (CLI) | payer OTHER, SELFPAY ==
--- NOTE | 2019-07-05 | DI.NM.S_ITS ---
PROCEDURE: NM LISSETH PERF SPECT R&S PHARM Rest and pharmacological stress myocardial perfusion SPECT with gated imaging and ejection fraction RADIOPHARMACEUTICAL: 25.7 mCi Tc-99m tetrafosmin IV at rest and 28.4 mCi Tc-99m tetrafosmin IV at peak effect of pharmacological stress. [id number] was performed. INDICATIONS: Syncope and collapse TECHNIQUE: Radiopharmaceutical was injected at peak stress test, and also at rest. SPECT images were obtained. SPECT myocardial perfusion images were displayed in short axis, horizontal long axis, and vertical long axis views. Gated images were reviewed using [employer] software. COMPARISON: None. CARDIAC STRESS: Patient exercised for 5 minutes and 50 seconds on rigo treadmill protocol and reached 78% of max predicted heart rate (7.0 METs, BEN +14%). Therefore the study was switched to lexiscan. A pharmacologic stress test was performed under the supervision of an attending staff, using an infusion of lexiscan 0.4mg IV X1. Hemodynamic data: There is normal blood pressure and heart rate response to pharmacologic stress. Symptoms: The patient denied anginal chest pain. Aminophylline: none EKG: No diagnostic changes of ischemia; no ectopy. FINDINGS: Raw data: There is good myocardial uptake of radiotracer. No significant motion artifacts. [id number] ratio is 0.33 (normal is less than 0.38 for tetrafosmin tracer). Left ventricle function: Gated images demonstrate normal left ventricular wall thickening. No segmental wall motion abnormalities. No transient ischemic dilation; TID is 1.21 (normal less than 1.3). Left ventricle resting end diastolic volume is 53 mL. Left ventricle stress ejection fraction is 89%; normal range is above 45%. Myocardial perfusion: There is normal distribution of activity in the right and left ventricular myocardium. No fixed or reversible perfusion defects. IMPRESSION: Low risk, normal treadmill->pharmaceutical nuclear stress test. 1) No perfusion evidence of ischemia or infarction. 2) Normal left ventricular size, wall motion, and systolic function (EF post stress 89%). 3) No ECG evidence of ischemia. 4) No angina during the study. 5) Reduced exercise tolerance (7.0 METs, BEN +14%). Study switched to lexiscan as only 78% of max predicted heart rate reached. 6) No prior nuclear stress test available for comparison. Dictated by: Karl Humphreys MD on 07/06/2019 at 16:32 Approved by: Karl Humphreys MD on 07/06/2019 at 16:37
== END ==
PROVIDERS: PCP Physician Assistant Medical; Visit Provider Physician Assistant Medical
DX: R55 Syncope and collapse (principal)
CPT/HCPCS: 78452; 93016; 93017; 93018; A9502; J2785

== ENCOUNTER 2020-01-14 11:17 | Emergency (ER) | payer OTHER, SELFPAY ==
[2020-01-14 11:21] VITALS: BP 144/76; PULSE 76; RESP 16; TEMP 36.7; O2SAT 100; BMI 29.2
--- NOTE | 2020-01-14 11:27 | DI.RAD.S_ITS ---
PROCEDURE: XR KNEE LT 3V INDICATIONS: left knee pain TECHNIQUE: 3 views of the knee were acquired. COMPARISON: None. FINDINGS: Bones: No fractures or dislocations. No suspicious bony lesions. Mild to moderate tricompartmental osteoarthritis. Soft tissues: No joint effusion. No suspicious soft tissue calcifications. IMPRESSION: No fracture. No acute osseous lesion. If symptoms and/or clinical suspicion for pathology persists, further assessment with repeat radiographs (7-10 days) or advanced imaging (e.g. CT, MRI or bone scan) may be helpful. Dictated by: Brittany Yoon MD, PhD on 01/14/2020 at 11:52 Approved by: Brittany Yoon MD, PhD on 01/14/2020 at 11:53
[2020-01-14] MEDS: ACETAMINOPHEN 325 MG TABLET 975 MG PO (12:04)
--- NOTE | 2020-01-14 12:56 | ED_ITS ---
HPI - Extremity Injury (Lower) <RCIK Worthy-BC - Last Filed: 01/14/20 14:31> General Chief Complaint: Extremity Injury, Lower Stated Complaint: LEFT KNEE Time Seen by Provider: 01/14/20 11:45 Source: patient Mode of arrival: Ambulatory Limitations: physical limitation History of Present Illness HPI Narrative: The patient is a 59-year-old female nonsmoker with history of possible meniscus injury to her left knee who presents with a chief complaint of left knee pain. It is then painful and swelling with ambulation over the past week. She denies any falls or trauma. She states she walks several miles per day. She has not taken anything for pain states that her pain is a 1 to 2/10. She states that she was diagnosed with a meniscus injury in the past, never saw follow-up for that were had physical therapy. She denies any redness or fevers, chest pain or shortness of breath. Related Data Home Medications Medication Instructions Recorded Confirmed Bp Med 1 tab PO DAILY 04/17/19 04/17/19 Multivitamin 50 Plus 1 tab PO DAILY 04/17/19 04/17/19 Synthroid 1 tab PO DAILY 04/17/19 04/17/19 Vitamin C 1 tab PO DAILY 04/17/19 04/17/19 Vitamin D3 1 cap PO DAILY 04/17/19 04/17/19 atorvastatin 1 tab PO QPM 04/17/19 04/17/19 montelukast 1 tab PO DAILY 04/17/19 04/17/19 Allergies Allergy/AdvReac Type Severity Reaction Status Date / Time ibuprofen [From ADVIL] Allergy Unknown Verified 05/18/18 07:38 Iodine and Iodide Containing Allergy Unknown Verified 05/18/18 07:38 Produc [IODINE AND IODIDE CONTAINING PRODUC] Review of Systems <RICK Worthy-BC - Last Filed: 01/14/20 14:31> Review of Systems Narrative: GENERAL: Denies chills, fatigue, malaise, fever, sweats. HEENT: Denies sinus pain, ear pain, sore throat, difficulty swallowing, dizziness. RESPIRATORY: Denies dyspnea, cough, wheezing, hemoptysis, sputum. CARDIOVASCULAR: Denies chest pain, palpitations, orthopnea, edema, GASTROINTESTINAL: Denies nausea, vomiting, abdominal pain, diarrhea, constipation, melena. : Denies dysuria, frequency, incontinence, hematuria, urinary retention. MUSCULOSKELETAL: See HPI SKIN: Denies rash, skin lesions, or other NEUROLOGIC: Denies weakness, headache, numbness, change in speech, confusion, seizures, incoordination. PSYCHIATRIC: No concerning psychosocial issues. 12 point review of systems is negative except for those stated above Patient History <NINA Worthy - Last Filed: 01/14/20 14:31> Medical History (Updated 01/14/20 @ 12:39 by NINA Worthy) Patient denies significant medical history (Acute) Social History Smoking Status: Never smoker Smoking Status: Never smoker alcohol intake frequency: 0-2 drinks per day Substance Use Type: does not use Exam <NINA Worthy - Last Filed: 01/14/20 14:31> Narrative Exam Narrative: GENERAL: This is a well-nourished, well-developed patient, in no acute distress HEAD: Atraumatic. Normocephalic. No temporal or scalp tenderness. EYES: Pupils equal round and reactive. Extraocular motions intact. No scleral icterus. No injection or drainage. ENT: Nose without bleeding, purulent drainage or septal hematoma. Airway patent. NECK: Trachea midline. No JVD or lymphadenopathy. Supple, nontender, no meningeal signs. CARDIOVASCULAR: Regular rate and rhythm RESPIRATORY: No cough. No increased respiratory effort. No accessory muscle use. GASTROINTESTINAL: Abdomen soft, non-tender, nondistended. No hepato- splenomegaly, or palpable masses. No guarding. EXTREMITIES: General pain to palpation and slight swelling noted left knee. Negative anterior posterior drawer. Negative varus valgus. Positive Fabian test. Positive pedal pulses left foot. Slight swelling suprapatellar region left knee. BACK: Nontender without deformity or crepitance. No flank tenderness. NEURO: AOx3. SKIN: No rash or erythema on visible skin. No erythema rash or abrasion or laceration noted left knee Initial Vital Signs Initial Vital Signs: Vital Signs Temperature 98.1 F 01/14/20 11:21 Pulse Rate 76 01/14/20 11:21 Respiratory Rate 16 01/14/20 11:21 Blood Pressure 144/76 H 01/14/20 11:21 Pulse Oximetry 100 01/14/20 11:21 <Wesley Lobo MD - Last Filed: 01/14/20 19:48> Initial Vital Signs Initial Vital Signs: Vital Signs Temperature 98.1 F 01/14/20 11:21 Pulse Rate 76 01/14/20 11:21 Respiratory Rate 16 01/14/20 11:21 Blood Pressure 144/76 H 01/14/20 11:21 Pulse Oximetry 100 01/14/20 11:21 Scores <NINA Worthy - Last Filed: 01/14/20 14:31> GCS Swengel coma scale eye opening: Spontaneous Sade coma scale verbal response: Orientated Sade coma scale motor response: Obey commands Swengel coma scale total score: 15 Course <NINA Worthy - Last Filed: 01/14/20 14:31> Orders Ordered: ED Orders 01/14/20 11:27 XR knee LT 3V Stat Discontinued Medications Acetaminophen (Tylenol) 975 mg PO NOW ONE Stop: 01/14/20 11:52 Last Admin: 01/14/20 12:04 Dose: 975 mg Documented by: ROSANNE Vital Signs Vital signs: Vital Signs - 8 hr 01/14/20 14:37 Temperature 98.1 F Pulse Rate 68 Respiratory Rate 14 Blood Pressure 138/74 Pulse Oximetry 100 <Wesley Lobo MD - Last Filed: 01/14/20 19:48> Orders Ordered: ED Orders 01/14/20 11:27 XR knee LT 3V Stat Discontinued Medications Acetaminophen (Tylenol) 975 mg PO NOW ONE Stop: 01/14/20 11:52 Last Admin: 01/14/20 12:04 Dose: 975 mg Documented by: ROSANNE Vital Signs Vital signs: Vital Signs - 8 hr 01/14/20 14:37 Temperature 98.1 F Pulse Rate 68 Respiratory Rate 14 Blood Pressure 138/74 Pulse Oximetry 100 MDM - Extremity Injury (Lower) <NINA Worthy - Last Filed: 01/14/20 14:31> Imaging Data Extremity x-ray #1: Radiologist's Impression: [address] [place] [id number] XRay Report Signed Patient: Jazmin Zavala [facility]#: [id number] : 9Acct:[id number] Age/Sex: 59 / FDate of Service: 01/14/20 Loc: ED Accession Number: [id number] Procedure: XR knee LT 3V Ordering Provider: Wesley Lobo MD PROCEDURE: XR KNEE LT 3V INDICATIONS: left knee pain TECHNIQUE: 3 views of the knee were acquired. COMPARISON: None. FINDINGS: Bones: No fractures or dislocations. No suspicious bony lesions. Mild to moderate tricompartmental osteoarthritis. Soft tissues: No joint effusion. No suspicious soft tissue calcifications. IMPRESSION: No fracture. No acute osseous lesion. If symptoms and/or clinical suspicion for pathology persists, further assessment with repeat radiographs (7-10 days) or advanced imaging (e.g. CT, MRI or bone scan) may be helpful. Dictated by: Brittany Yoon MD, PhD on 01/14/2020 at 11:52 Approved by: Brittany Yoon MD, PhD on 01/14/2020 at 11:53 [facility] Narrative Medical decision making narrative: The patient is a 59-year-old female who presents with a chief complaint of left knee pain. She has had this ongoing for a while, it waxes and wanes. She has previous diagnosis of a meniscus injury, which I am suspicious of given a positive Fabian test. She is neurovascular intact her stay in the emergency department. She has a negative x-ray. She has no overlying erythema or suspicion of infection. She declines need for narcotic pain medication. I did offer a prescription of Toradol, then she remembered she was allergic to ibuprofen so we elected to hold off on that. I discussed at length strict follow-up with primary care provider, she may benefit from further imaging and or physical therapy. Patient has no questions or concerns upon discharge and states understanding of return precautions as well as follow-up care. Discharge Plan Departure Patient Disposition: Home Clinical Impression: Acute pain of left knee Discharge Date/Time: 01/14/20 13:50 Instructions: How To Perform RICE (Rest, Ice, Compress, Elevate), DI for Knee Pain Activity Restrictions/Additional Instructions: Thank you for trusting us with your care today. As I discussed, your x-ray shows no acute fracture. This does not rule out a soft tissue injury such as a ligament or tendon injury. It is important that you follow up with primary care provider, especially if worsening or no improvement. There can be fractures that did not show up on initial x-ray. Given your exam I am concerned about a soft tissue injury such as your meniscus As discussed, please follow-up with primary care provider in the next few days. You may benefit from physical therapy and/or further imaging Please come back to the emergency department for any acute concerns In the meantime please use rest ice compression elevation as well as [id number] pain medications as he Prescriptions: No Action Bp Med 1 tab PO DAILY RF: 0 Multivitamin 50 Plus 1 tab PO DAILY RF: 0 Synthroid 1 tab PO DAILY RF: 0 Vitamin C 1 tab PO DAILY RF: 0 Vitamin D3 1 cap PO DAILY RF: 0 atorvastatin 1 tab PO QPM RF: 0 montelukast 1 tab PO DAILY RF: 0 Referrals: Divya Ceja PA-C [Primary Care Provider] -
[2020-01-14 14:37] VITALS: BP 138/74; PULSE 68; RESP 14; TEMP 36.7; O2SAT 100
== END 2020-01-14 13:50 | disposition home or self-care (01) ==
PROVIDERS: Emergency Provider Nurse Practitioner Family; PCP Physician Assistant Medical
DX: M25.562 Pain in left knee (principal)
CPT/HCPCS: 73562

== ENCOUNTER 2020-01-14 20:10 | Emergency (ER) | payer OTHER, SELFPAY ==
[2020-01-14] VITALS (7 sets, daily range): BP systolic 112–135; BP diastolic 56–78; PULSE 66–114; RESP 14–37; TEMP 36.9; O2SAT 94–99
--- NOTE | 2020-01-14 20:28 | DI.RAD.S_ITS ---
PROCEDURE: XR CHEST 1V INDICATIONS: chest pain TECHNIQUE: One view of the chest was acquired. COMPARISON: None. FINDINGS: Surgical changes and devices: None. Lungs and pleura: Lungs are clear. No pleural effusions or pneumothorax. Mediastinum: Mediastinal contours appear normal. Heart size is normal. Bones and chest wall: No suspicious bony lesions. Overlying soft tissues appear unremarkable. IMPRESSION: Normal for age, source of current chest pain symptoms is not seen. Dictated by: Gurinder Obrien M.D. on 01/15/2020 at 8:13 Approved by: Gurinder Obrien M.D. on 01/15/2020 at 8:13
[2020-01-14 21:07] LABS: Add Manual Diff / Slide Review NO; Basophils Absolute Auto 100 /uL (0-100); Basophils Percent Auto 0.5 % (0-2); Eosinophils Absolute Auto 400 /uL (0-450); Eosinophils Percent Auto 2.9 % (2-4); Hematocrit 37.9 % (36-46); Hemoglobin 12.5 g/dL (12.0-16.0); Lymphocytes Absolute Auto 2900 /uL (1100-4500); Mean Corpuscular HGB Conc 32.9 % (30-36); Mean Corpuscular Hemoglobin 29.3 PG (26-34); Monocytes Absolute Auto 900 /uL (0-900); Monocytes Percent Auto 6.8 % (3-14); Neutrophils Absolute Auto 8500 /uL (1500-7000); Neutrophils Percent Auto 66.8 % (50-75); Platelet Count 240 X10^3/uL (150-400); Red Blood Cell Count 4.26 X10^6/uL (4.0-5.2); Red Cell Distribution Width 13.2 % (11.6-14.8); White Blood Cell Count 12.7 X10^3/uL (4.5-11.0)
[2020-01-14 21:10] LABS: INR 0.9 (0.9-1.3); Prothrombin Time 10.1 SECONDS (10.1-12.7)
[2020-01-14 21:13] LABS: PTT Partial Thromboplastin Tim 28 SECONDS (26.4-36.2)
[2020-01-14 21:15] LABS: Alanine Aminotransferase 30 IU/L (<35); Albumin 4.5 g/dL (3.5-5.0); Albumin Globulin Ratio 1.5 (1.0-2.8); Alkaline Phosphatase 67 U/L (38-126); Aspartate Aminotransferase 30 IU/L (14-36); BUN Creatinine Ratio 21.5 (6-22); Bilirubin Total 0.3 mg/dL (0.2-1.3); Blood Urea Nitrogen 20 mg/dL (7-17); Calcium 9.6 mg/dL (8.4-10.2); Carbon Dioxide 25 mmol/L (22-32); Chloride 103 mmol/L (98-107); Creatine Kinase 199 U/L (30-135); Estimated Glomerular Filt Rate > 60.0 mL/min (>60); Globulin 3.1 g/dL (1.7-4.1); Glucose 167 mg/dL (80-110); HEMOLYSIS < 15 (0-50); Lipase 351 U/L (23-300); Potassium 3.7 mmol/L (3.4-5.1); Sodium 137 mmol/L (137-145); Total Protein 7.6 g/dL (6.3-8.2)
[2020-01-14 21:26] LABS: Troponin I < 0.012 ng/mL (0.01-0.034)
[2020-01-14 21:30] LABS: CKMB % Relative Index 0.2 % (1.5-5.0); Creatine Kinase MB 0.31 ng/mL (<2.37)
--- NOTE | 2020-01-14 21:47 | ED_ITS ---
HPI - Syncope General Chief Complaint: Syncope Stated Complaint: Syncope Time Seen by Provider: 01/14/20 21:34 Source: EMS Mode of arrival: EMS Limitations: physical limitation History of Present Illness HPI narrative: The patient injured her left knee this past weekend. She was working out, she is unsure exactly what happened. She was evaluated in this ER earlier today with the knee injury, there was no fracture, she had a knee sprain/strain. She took codeine she had at home from a prior prescription. Her heard her indication, she did not sound right. He found her leaning against the counter, but not responding. She had a staring look in her face. She was shaking. He helped her to the floor. He thinks there may have been LOC. The patient does not remember much of that event. She arrives by POV, complaining of left knee pain. She was trembling, but not experiencing chest pain or dyspnea. There were no acute neurologic deficits. She has no history of cardiovascular disease. Related Data Home Medications Medication Instructions Recorded Confirmed Bp Med 1 tab PO DAILY 04/17/19 04/17/19 Multivitamin 50 Plus 1 tab PO DAILY 04/17/19 04/17/19 Synthroid 1 tab PO DAILY 04/17/19 04/17/19 Vitamin C 1 tab PO DAILY 04/17/19 04/17/19 Vitamin D3 1 cap PO DAILY 04/17/19 04/17/19 atorvastatin 1 tab PO QPM 04/17/19 04/17/19 montelukast 1 tab PO DAILY 04/17/19 04/17/19 Previous Rx's Medication Instructions Recorded tramadol 50 mg PO Q6-8H PRN #10 tab 01/14/20 Allergies Allergy/AdvReac Type Severity Reaction Status Date / Time ibuprofen [From ADVIL] Allergy Unknown Verified 05/18/18 07:38 Iodine and Iodide Containing Allergy Unknown Verified 05/18/18 07:38 Produc [IODINE AND IODIDE CONTAINING PRODUC] Review of Systems Review of Systems ROS Unobtainable: All systems reviewed & are unremarkable except as noted in HPI and below Constitutional Constitutional: Denies chills, Denies fever(s), Denies lethargy and Denies weakness Eyes Eyes: Denies change in vision ENT Ears, Nose, Mouth, and Throat: Denies dizziness, Denies nasal obstruction and Denies sore throat Cardiovascular Cardiovascular: Denies chest pain, Reports syncope, Denies irregular heart rhythm, Denies lightheadedness, Denies dyspnea and Denies dyspnea on exertion Respiratory Respiratory: Denies cough, Denies dyspnea, Denies dyspnea on exertion and Denies wheezing Gastrointestinal Gastrointestinal: Denies abdominal pain, Denies diarrhea, Denies nausea and Denies vomiting Musculoskeletal Musculoskeletal: Reports arthralgias and Reports limited range of motion Integumentary/Breasts Skin/Breast: Denies pruritus, Denies erythema, Denies rash and Denies wounds Neurologic Neurologic: Reports as per HPI, Denies confusion, Denies dizziness, Reports syncope and Denies weakness Psychiatric Psychiatric: Denies confusion Allergic/Immunologic Allergic/Immunologic: Denies wheezing Patient History Medical History (Updated 01/14/20 @ 22:10 by Srinath Howard MD) Hyperlipidemia (Acute) Pancreatitis, chronic (Acute) Patient denies significant medical history (Acute) Social History Smoking Status: Never smoker Smoking Status: Never smoker alcohol intake frequency: 0-2 drinks per day Substance Use Type: does not use Exam Initial Vital Signs Initial Vital Signs: Vital Signs Temperature 98.5 F 01/14/20 20:19 Pulse Rate 80 01/14/20 20:19 Respiratory Rate 14 01/14/20 20:19 Blood Pressure 132/78 01/14/20 20:19 Pulse Oximetry 99 01/14/20 20:19 Const General: cooperative and well developed Nutritional Appearance: well nourished [facility] Mouth: oral mucosae normal Throat: posterior oropharynx normal Eyes General: appearance normal, both eyes and all related structures Eyelids: eyelids normal Conjunctivae: conjunctivae normal Sclera: sclerae normal Pupils: PERRL EOM: EOM intact bilaterally Neck Neck: supple and No tender Resp Effort & Inspection: normal respiratory effort and able to speak in complete sentences Auscultation: clear to auscultation bilaterally, no rales, no rhonchi and no wheezes Cardio Rate: regular rate Rhythm: regular rhythm Heart Sounds: no click, no gallops, no murmurs and no rubs Pulses: normal peripheral pulses GI Inspection: non-distended Palpation: soft, no hepatosplenomegaly, No guarding, No pulsatile mass and No tender Auscultation: normal bowel sounds Back/Spine/Pelvis Back: No CVA tenderness Cervical Spine: cervical ROM normal and No pain with cervical ROM Thoracic/Lumbar Spine: thoracic and lumbar spine normal to inspection Skin General: no rashes or lesions noted, No jaundice and No petechiae Neuro General: patient alert, patient oriented x3, gait normal and no focal motor deficits Speech: speech normal Other: NIHSS is 0 Extrem Other: Tenderness in the left knee, slight edema. Restriction of flexion due to pain. No anterior drawer sign. No mediolateral laxity Psych Appearance: well kempt Mental Status: mental status grossly normal Attitude: cooperative Thought Content: normal Procedures Orthopedic Splinting/Casting Injury #1: Side: left Lower Extremity Injury Location: knee Lower Extremity Immobilizer: knee immobilizer Post splinting neuro exam: intact Post splinting vascular exam: intact Placed by: Nursing Course Orders Ordered: ED Orders 01/14/20 20:28 XR chest 1V Stat 01/14/20 20:48 Complete Blood Count AUTO DIFF Stat Comprehensive Metabolic Panel Stat Lipase Stat Partial Thromboplastin Time Stat Prothrombin Time INR Stat Troponin & CK Cardiac Panel Stat 01/14/20 21:14 EKG-12 Lead Stat Discontinued Medications Tramadol HCl (Ultram 50mg Prepack) 1 bottle MISC SEEINSTR ONE Stop: 01/14/20 22:00 Vital Signs Vital signs: Vital Signs - 8 hr 01/14/20 20:19 01/14/20 21:09 01/14/20 21:11 Temperature 98.5 F Pulse Rate 80 114 H 72 Respiratory Rate 14 37 H 22 Blood Pressure 132/78 134/61 Pulse Oximetry 99 95 97 MDM - Syncope Lab Data Result diagrams: 01/14/20 20:48 01/14/20 20:48 Labs: Lab Results 01/14/20 01/14/20 01/14/20 Range/Units 20:48 20:48 20:48 WBC 12.7 H (4.5-11.0) X10^3/uL RBC 4.26 (4.0-5.2) X10^6/uL Hgb 12.5 (12.0-16.0) g/dL Hct 37.9 (36-46) % MCV 89.0 (80-100) fL MCH 29.3 (26-34) PG MCHC 32.9 (30-36) % RDW 13.2 (11.6-14.8) % Plt Count 240 (150-400) X10^3/uL Neut % (Auto) 66.8 (50-75) % Lymph % (Auto) 23.0 L (25-40) % Mcduffie % (Auto) 6.8 (3-14) % Eos % (Auto) 2.9 (2-4) % Baso % (Auto) 0.5 (0-2) % Neut # (Auto) 8500 H (1617-7508) /uL Lymph # (Auto) 2900 (5425-1970) /uL Mcduffie # (Auto) 900 (0-900) /uL Eos # (Auto) 400 (0-450) /uL Baso # (Auto) 100 (0-100) /uL PT 10.1 (10.1-12.7) SECONDS INR 0.9 (0.9-1.3) APTT 28 (26.4-36.2) SECONDS Sodium 137 (137-145) mmol/L Potassium 3.7 (3.4-5.1) mmol/L Chloride 103 (98-107) mmol/L Carbon Dioxide 25 (22-32) mmol/L BUN 20 H (7-17) mg/dL Creatinine 0.93 (0.52-1.04) mg/dL Estimated GFR > 60.0 (>60) mL/min BUN/Creatinine Ratio 21.5 (6-22) Glucose 167 H (80-110) mg/dL Calcium 9.6 (8.4-10.2) mg/dL Total Bilirubin 0.3 (0.2-1.3) mg/dL AST 30 (14-36) IU/L ALT 30 (<35) IU/L Alkaline Phosphatase 67 (38-126) U/L Total Creatine Kinase 199 H (30-135) U/L CK-MB (CK-2) 0.31 (<2.37) ng/mL CK-MB (CK-2) Rel Index 0.2 L (1.5-5.0) % Troponin I < 0.012 (0.01-0.034) ng/mL Total Protein 7.6 (6.3-8.2) g/dL Albumin 4.5 (3.5-5.0) g/dL Globulin 3.1 (1.7-4.1) g/dL Albumin/Globulin Ratio 1.5 (1.0-2.8) Lipase 351 H (23-300) U/L Imaging Data Chest x-ray: My Impression: Normal chest ECG Data Attestation: I personally reviewed and interpreted this ECG as follows: (Normal sinus rhythm rate 67 beats per minute. Borderline right axis deviation. Nonspecific ST T wave changes. No ectopy. No acute ST T wave changes.) Discharge Plan Departure Patient Disposition: Home Clinical Impression: Syncope Qualifiers: Syncope type: vasovagal syncope Qualified Code(s): R55 - Syncope and collapse Strain of knee and leg, left Qualifiers: Encounter type: sequela Qualified Code(s): S86.912S - Strain of unspecified muscle(s) and tendon(s) at lower leg level, left leg, sequela Instructions: DI for Syncope in Adults (Fainting), DI for Knee Sprain Activity Restrictions/Additional Instructions: Use the immobilizer when up and about. You may wean from the immobilizer over the next week or 2 as tolerated. Follow-up with her doctor to re-evaluate the knee in 1-2 weeks Use Tylenol or Advil as necessary for pain. Tramadol every 6 hour as necessary for added pain control. Prescriptions: New tramadol 50 mg tablet 50 mg PO Q6-8H PRN (Reason: pain) Qty: 10 RF: 0 No Action Bp Med 1 tab PO DAILY RF: 0 Multivitamin 50 Plus 1 tab PO DAILY RF: 0 Synthroid 1 tab PO DAILY RF: 0 Vitamin C 1 tab PO DAILY RF: 0 Vitamin D3 1 cap PO DAILY RF: 0 atorvastatin 1 tab PO QPM RF: 0 montelukast 1 tab PO DAILY RF: 0 Referrals: Divya Ceja PA-C [Primary Care Provider] -
[2020-01-14] MEDS: TRAMADOL 50 MG PREPACK 1 BOTTLE MISC (22:23)
== END 2020-01-14 22:45 | disposition home or self-care (01) ==
PROVIDERS: Emergency Provider Emergency Medicine; PCP Physician Assistant Medical
DX: R55 Syncope and collapse (principal); S86.912S Strain of unspecified muscle(s) and tendon(s) at lower leg level, left leg, sequela; R07.9 Chest pain, unspecified; M25.562 Pain in left knee
CPT/HCPCS: 36415; 71045; 73562; 80053; 82550; 82553; 83690; 84484; 85025; 85610; 85730; 93005; 93010; 99282; 99283; 99284

== ENCOUNTER 2020-09-01 12:01 | Emergency (ER) | payer OTHER, SELFPAY ==
[2020-09-01] VITALS (10 sets, daily range): BP systolic 112–149; BP diastolic 56–65; PULSE 64–81; RESP 16; TEMP 36.7; O2SAT 96–99; BMI 29.2
--- NOTE | 2020-09-01 12:35 | ED.HA ---
HPI - Headache General Chief Complaint: Headache Stated Complaint: headache for 9 days, referred by [facility] for MRI Time Seen by Provider: 09/01/20 12:03 Mode of arrival: Ambulatory History of Present Illness HPI Narrative: 60-year-old woman with a history of hypertension, hyperlipidemia and seasonal allergies presents with 9 days of headache that seemed to be centered on the occipital processes bilaterally. She describes dizziness when she stands up but no significant nausea. No hearing abnormalities or tinnitus. No tenderness to palpation along the temporal arteries. No recent fevers, cough, chills, abdominal pain, vomiting, diarrhea. She does not describe any tenderness specifically when leaning forward nor nasal discharge. She also complains of some mild ataxia and just a general feeling of being unsteady over the last week and a half. She notes she typically is very active and goes to the gym daily and has not been able to do so recently. She does not have a significant history for headache and rarely has required even medications for headaches in the past. She was seen at urgent care earlier today and given a prescription for hydroxyzine and Naprosyn and recommended that she come to the emergency room for further evaluation. She was given a shot of IM Toradol and notes that it has made little effect in helping with headache symptoms. Related Data Home Medications Medication Instructions Recorded Confirmed Bp Med 1 tab PO DAILY 04/17/19 04/17/19 Multivitamin 50 Plus 1 tab PO DAILY 04/17/19 04/17/19 Synthroid 1 tab PO DAILY 04/17/19 04/17/19 Vitamin C 1 tab PO DAILY 04/17/19 04/17/19 Vitamin D3 1 cap PO DAILY 04/17/19 04/17/19 atorvastatin 1 tab PO QPM 04/17/19 04/17/19 montelukast 1 tab PO DAILY 04/17/19 04/17/19 Previous Rx's Medication Instructions Recorded tramadol 50 mg PO Q6-8H PRN #10 tab 01/14/20 Allergies Allergy/AdvReac Type Severity Reaction Status Date / Time ibuprofen [From ADVIL] Allergy Unknown Verified 09/01/20 12:24 Iodine and Iodide Containing Allergy Unknown Verified 09/01/20 12:24 Produc [IODINE AND IODIDE CONTAINING PRODUC] Review of Systems Review of Systems ROS Unobtainable: All systems reviewed & are unremarkable except as noted in HPI and below Patient History Medical History (Updated 09/01/20 @ 18:47 by Madhavi Calvert MD) Hyperlipidemia Hypertension Hypothyroidism (acquired) Pancreatitis, chronic Patient denies significant medical history Social History Smoking Status: Never smoker Smoking Status: Never smoker alcohol intake frequency: 0-2 drinks per day Substance Use Type: does not use Exam Narrative Exam Narrative: General: Healthy appearing, in no acute distress. Able to give a complete and coherent history. Well-nourished well-developed HEENT: Moist mucous membranes, normal sclera with reactive pupils, extraocular movement is within normal limits. Tympanic membranes are pearly gamble bilaterally Neck: No JVD, supple, slight tenderness at occipital insertions bilaterally without any masses, rash or erythema Respiratory: Lungs are clear to auscultation, no wheezing no rales no rhonchi. Full and symmetrical air movement Cardiac: Regular rate and rhythm no murmurs no bruits Abdomen: Soft, nontender, good bowel tones, no flank pain Skin: Warm and dry, no rashes Neurologic: Grossly neurologically intact with no obvious asymmetries or abnormalities. She does have some mild difficulty with heel-toe walking and standing with her eyes closed Extremities: No trauma, well perfused Psych: Cooperative, appropriate insight and affect Initial Vital Signs Initial Vital Signs: Vital Signs Temperature 98.0 F 09/01/20 12:19 Pulse Rate 72 09/01/20 12:19 Respiratory Rate 16 09/01/20 12:19 Blood Pressure 137/65 09/01/20 12:19 Pulse Oximetry 97 09/01/20 12:19 Course Orders Ordered: ED Orders 09/01/20 12:56 CT head/brain wo con Stat 09/01/20 15:47 MR stroke Stat 09/01/20 16:13 Complete Blood Count AUTO DIFF Stat Comprehensive Metabolic Panel Stat Discontinued Medications Dexamethasone (Dexamethasone 10 Mg/Ml Vial) 10 mg IV NOW ONE Stop: 09/01/20 15:40 Last Admin: 09/01/20 16:02 Dose: 10 mg Documented by: ROSANNE Diphenhydramine HCl (Diphenhydramine 50 Mg/Ml Vial) 25 mg IV NOW ONE Stop: 09/01/20 15:40 Last Admin: 09/01/20 16:02 Dose: 25 mg Documented by: ROSANNE Sodium Chloride (Normal Saline 0.9%) 1,000 mls @ 1,000 mls/hr IV BOLUS ONE Stop: 09/01/20 16:38 Last Admin: 09/01/20 16:02 Dose: 1,000 mls/hr Documented by: ROSANNE Metoclopramide HCl (Metoclopramide 10 Mg/2 Ml Inj) 10 mg IV NOW ONE Stop: 09/01/20 15:40 Last Admin: 09/01/20 16:01 Dose: 10 mg Documented by: ROSANNE Vital Signs Vital signs: Vital Signs - 8 hr 09/01/20 12:19 09/01/20 14:40 09/01/20 14:42 Temperature 98.0 F Pulse Rate 72 75 Pulse Rate [Orthostatic Lying] 75 Pulse Rate [Orthostatic Sitting] 75 Pulse Rate [Orthostatic Standing] 77 Respiratory Rate 16 16 Blood Pressure 137/65 142/64 H Blood Pressure [Orthostatic Lying] 142/64 H Blood Pressure [Orthostatic Sitting] 149/65 H Blood Pressure [Orthostatic Standing] 140/63 Pulse Oximetry 97 96 09/01/20 17:16 09/01/20 17:18 09/01/20 18:03 Temperature Pulse Rate 64 67 72 Pulse Rate [Orthostatic Lying] Pulse Rate [Orthostatic Sitting] Pulse Rate [Orthostatic Standing] Respiratory Rate 16 Blood Pressure 116/58 L 112/56 L Blood Pressure [Orthostatic Lying] Blood Pressure [Orthostatic Sitting] Blood Pressure [Orthostatic Standing] Pulse Oximetry 96 96 99 MDM - Headache Medical Records Attestation: I reviewed the patient's medical records. Lab Data Attestation: I reviewed the patient's lab results. Result diagrams: 09/01/20 16:13 09/01/20 16:13 Labs: Lab Results 09/01/20 09/01/20 Range/Units 16:13 16:13 WBC 10.2 (4.5-11.0) X10^3/uL RBC 4.50 (4.0-5.2) X10^6/uL Hgb 13.2 (12.0-16.0) g/dL Hct 39.6 (36-46) % MCV 88.1 (80-100) fL MCH 29.2 (26-34) PG MCHC 33.2 (30-36) % RDW 13.0 (11.6-14.8) % Plt Count 263 (150-400) X10^3/uL Neut % (Auto) 48.5 L (50-75) % Lymph % (Auto) 38.7 (25-40) % [place] % (Auto) 8.4 (3-14) % Eos % (Auto) 3.8 (2-4) % Baso % (Auto) 0.6 (0-2) % Neut # (Auto) 5000 (7840-5202) /uL Lymph # (Auto) 4000 (6520-0948) /uL [place] # (Auto) 900 (0-900) /uL Eos # (Auto) 400 (0-450) /uL Baso # (Auto) 100 (0-100) /uL Sodium 136 L (137-145) mmol/L Potassium 4.1 (3.4-5.1) mmol/L Chloride 100 (98-107) mmol/L Carbon Dioxide 29 (22-32) mmol/L BUN 23 H (7-17) mg/dL Creatinine 1.15 H (0.52-1.04) mg/dL Estimated GFR 48.0 L (>60) mL/min BUN/Creatinine Ratio 20.0 (6-22) Glucose 113 H (80-110) mg/dL Calcium 10.1 (8.4-10.2) mg/dL Total Bilirubin 0.3 (0.2-1.3) mg/dL AST 37 H (14-36) IU/L ALT 44 H (<35) IU/L Alkaline Phosphatase 71 (38-126) U/L Total Protein 8.2 (6.3-8.2) g/dL Albumin 4.6 (3.5-5.0) g/dL Globulin 3.6 (1.7-4.1) g/dL Albumin/Globulin Ratio 1.3 (1.0-2.8) Imaging Data CT scan - head: Radiologist's Impression: FINDINGS: Image quality: Excellent. CSF spaces: Basal cisterns are patent. No extra-axial fluid collections. Ventricles are normal in size and shape. Brain: No midline shift. No intracranial masses or hemorrhage. No large area of hypodensity in a vascular distribution to suggest infarction. Gamble-white matter interface is unchanged. Skull and face: Calvarium and visualized facial bones are intact, without suspicious lesions. Sinuses: Visualized sinuses and mastoids are clear. IMPRESSION: No acute intracranial abnormality. MRI brain could be considered for further evaluation. Dictated by: Xavi Antonio M.D. on 09/01/2020 at 13:09 MRI Brain: Radiologist's Impression: FINDINGS: Image quality: Excellent. BRAIN: CSF spaces: Ventricles are normal in size and shape. Basal cisterns are patent. No extra-axial fluid collections. Brain: No intracranial bleeds or mass effects. Gamble-white matter interface is normal. Diffusion weighted images show no acute ischemic insults. Brainstem appears normal. Normal intravascular flow voids are present. No abnormal intracranial enhancement. Skull and face: Calvarial marrow signal is normal. Orbits appear normal. Sinuses: Sinuses and mastoids are clear. BRAIN MR ANGIOGRAM: Anterior circulation: Intracranial internal carotid arteries are normal in size and enhancement. The flow within the paired anterior cerebral arteries is normal and symmetric. The flow within the middle cerebral arteries is normal and symmetric. The anterior communicating artery is seen. No stenoses, occlusions, or aneurysms. Posterior circulation: The visualized portions of the vertebral arteries demonstrate normal caliber, and join to form a normal appearing basilar artery. The flow within the posterior cerebral arteries demonstrates a normal anatomic variant of origin on the left and basilar artery origin on the right. No stenoses, occlusions, or aneurysms. NECK MR ANGIOGRAM: Carotids: Great vessels demonstrate a conventional anatomy as they arise from the aortic arch. The origins of the common carotid arteries appear patent. The calibers and courses of both common carotid arteries are normal. The bifurcation regions appear normal bilaterally. The internal carotid arteries demonstrate normal course and caliber. Posterior circulation: The origins of the vertebral arteries appear patent. More superior portions of both vertebral arteries demonstrate normal course and caliber, and join to form a normal appearing basilar artery. Miscellaneous: Subclavian arteries appear patent. Pre-contrast images through the neck show no soft tissue abnormalities. IMPRESSION: BRAIN MRI: Mild microvascular atherosclerotic change in the deep white matter of each hemisphere but no sign of acute or subacute stroke, mass, ventriculomegaly, or intracranial hemorrhage. BRAIN MR ANGIOGRAM: Normal intracranial MR angiogram with normal anatomic variant origin the of the [id number] of the left posterior cerebral artery and basilar artery origin on the right. NECK MR ANGIOGRAM: No area of atherosclerotic stenosis of significance. Mild tortuosity of the brachiocephalic vessels, perhaps related to hypertension but no area of stenosis or dissection is found.. MDM Narrative Medical decision making narrative: 60-year-old woman with 9 day headache and no prior history of significant headache. Mild vertigo and ataxia. Initial head CT and lab work were unremarkable. Brain MR does not suggest a stroke or other alternate diagnoses. No evidence of infection or middle ear problems. No sinusitis. After fluids, 10 mg of Decadron and Reglan she is feeling significantly better. Patient is safe for home discharge at this time Discharge Plan Departure Patient Disposition: Home Clinical Impression: Headache Qualifiers: Headache type: unspecified Headache chronicity pattern: acute headache Intractability: not intractable Qualified Code(s): R51.9 - Headache, unspecified Instructions: DI for Headache Activity Restrictions/Additional Instructions: Thank you for coming in today With headache lasting for 9 days, I believe it was very appropriate to be further evaluated. Your lab work does not suggest any significant abnormalities or infection. Your CT scan did not show any acute bleeding and your MRI did not show masses or any evidence of stroke to explain headache. The imaging studies also did not suggest an acute sinusitis. Your headache improved with fluids nausea medicine and steroids to help with the inflammation. At this point, there is no life-threatening explanation for the headache and it is significantly better. If your continuing to have headaches symptoms tomorrow using the Naprosyn and Vistaril combination that the nurse practitioner prescribed and medications that you picked up earlier today would be very appropriate. If you continue to have problems with headaches, I would follow-up with your primary care physician. You may be an excellent candidate for physical therapy to see if that may be helpful in alleviating headaches if they do continue I wish you the best Prescriptions: No Action Bp Med 1 tab PO DAILY RF: 0 Multivitamin 50 Plus 1 tab PO DAILY RF: 0 Synthroid 1 tab PO DAILY RF: 0 Vitamin C 1 tab PO DAILY RF: 0 Vitamin D3 1 cap PO DAILY RF: 0 atorvastatin 1 tab PO QPM RF: 0 montelukast 1 tab PO DAILY RF: 0 tramadol 50 mg tablet 50 mg PO Q6-8H PRN (Reason: pain) Qty: 10 RF: 0 Referrals: Diyva Ceja PA-C [Primary Care Provider] -
--- NOTE | 2020-09-01 12:56 | DI.CT.S_ITS ---
PROCEDURE: CT HEAD/BRAIN WO CON INDICATIONS: headache x 8 days. No neuro deficit. TECHNIQUE: Noncontrast 4.5 mm thick angled axial sections acquired from the foramen magnum to the vertex, with coronal and sagittal reformats. For radiation dose reduction, the following was used: automated exposure control, adjustment of mA and/or kV according to patient size. COMPARISON: [facility], CT, CT HEAD/BRAIN WO CON, 04/17/2019, 13:32. FINDINGS: Image quality: Excellent. CSF spaces: Basal cisterns are patent. No extra-axial fluid collections. Ventricles are normal in size and shape. Brain: No midline shift. No intracranial masses or hemorrhage. No large area of hypodensity in a vascular distribution to suggest infarction. Gamble-white matter interface is unchanged. Skull and face: Calvarium and visualized facial bones are intact, without suspicious lesions. Sinuses: Visualized sinuses and mastoids are clear. IMPRESSION: No acute intracranial abnormality. MRI brain could be considered for further evaluation. Dictated by: Xavi Antonio M.D. on 09/01/2020 at 13:09 Approved by: Xavi Antonio M.D. on 09/01/2020 at 13:13
--- NOTE | 2020-09-01 14:41 | PC.NURSE ---
Pt states that she grows dizzy with movement. Othorstatics negative.
--- NOTE | 2020-09-01 15:47 | DI.MRI.S_ITS ---
PROCEDURE: MR STROKE Pre- and post-contrast brain MRI, non-contrast brain MR angiogram, pre- and postcontrast neck MR angiogram INDICATIONS: headache, ataxia, ? basilar stroke TECHNIQUE: Brain: Noncontrast axial T1 spin echo, axial T2 fast spin echo, sagittal and axial FLAIR, coronal T2 fast spin echo, axial gradient echo, axial diffusion and ADC through the brain. After the administration of contrast, axial 3D VIBE of the cranial vasculature and brain. Brain MRA: Non-contrast 3-D time of flight MR angiogram, with multiple eolqguw-weytarfls-jfiphzuges (MIP) reformats performed. Neck MRA: Axial and sagittal TruFISP through the neck. Coronal dynamic MR angiogram during administration of contrast in the arterial and venous phases, with 3-dimenstional rrwmroq-zovriigyp-vhkmddzcdj (MIP) reformats constructed from subtraction images. COMPARISON: None. FINDINGS: Image quality: Excellent. BRAIN: CSF spaces: Ventricles are normal in size and shape. Basal cisterns are patent. No extra-axial fluid collections. Brain: No intracranial bleeds or mass effects. Gamble-white matter interface is normal. Diffusion weighted images show no acute ischemic insults. Brainstem appears normal. Normal intravascular flow voids are present. No abnormal intracranial enhancement. Skull and face: Calvarial marrow signal is normal. Orbits appear normal. Sinuses: Sinuses and mastoids are clear. BRAIN MR ANGIOGRAM: Anterior circulation: Intracranial internal carotid arteries are normal in size and enhancement. The flow within the paired anterior cerebral arteries is normal and symmetric. The flow within the middle cerebral arteries is normal and symmetric. The anterior communicating artery is seen. No stenoses, occlusions, or aneurysms. Posterior circulation: The visualized portions of the vertebral arteries demonstrate normal caliber, and join to form a normal appearing basilar artery. The flow within the posterior cerebral arteries demonstrates a normal anatomic variant of origin on the left and basilar artery origin on the right. No stenoses, occlusions, or aneurysms. NECK MR ANGIOGRAM: Carotids: Great vessels demonstrate a conventional anatomy as they arise from the aortic arch. The origins of the common carotid arteries appear patent. The calibers and courses of both common carotid arteries are normal. The bifurcation regions appear normal bilaterally. The internal carotid arteries demonstrate normal course and caliber. Posterior circulation: The origins of the vertebral arteries appear patent. More superior portions of both vertebral arteries demonstrate normal course and caliber, and join to form a normal appearing basilar artery. Miscellaneous: Subclavian arteries appear patent. Pre-contrast images through the neck show no soft tissue abnormalities. IMPRESSION: BRAIN MRI: Mild microvascular atherosclerotic change in the deep white matter of each hemisphere but no sign of acute or subacute stroke, mass, ventriculomegaly, or intracranial hemorrhage. BRAIN MR ANGIOGRAM: Normal intracranial MR angiogram with normal anatomic variant origin the of the [id number] of the left posterior cerebral artery and basilar artery origin on the right. NECK MR ANGIOGRAM: No area of atherosclerotic stenosis of significance. Mild tortuosity of the brachiocephalic vessels, perhaps related to hypertension but no area of stenosis or dissection is found.. Dictated by: Gurinder Obrien M.D. on 09/01/2020 at 17:16 Approved by: Gurinder Obrien M.D. on 09/01/2020 at 17:21
[2020-09-01] MEDS: METOCLOPRAMIDE 10 MG/2 ML INJ IV (16:01)
[2020-09-01] MEDS: DEXAMETHASONE 10 MG/ML VIAL IV (16:02)
[2020-09-01] MEDS: diphenhydrAMINE 50 MG/ML VIAL 25 MG IV (16:02)
[2020-09-01] MEDS: SODIUM CHLORIDE 0.9% 1,000 ML 1000 ML IV (16:02)
[2020-09-01 16:28] LABS: Add Manual Diff / Slide Review NO; Basophils Absolute Auto 100 /uL (0-100); Basophils Percent Auto 0.6 % (0-2); Eosinophils Absolute Auto 400 /uL (0-450); Eosinophils Percent Auto 3.8 % (2-4); Hematocrit 39.6 % (36-46); Hemoglobin 13.2 g/dL (12.0-16.0); Lymphocytes Absolute Auto 4000 /uL (1100-4500); Lymphocytes Percent Auto 38.7 % (25-40); Mean Corpuscular HGB Conc 33.2 % (30-36); Mean Corpuscular Hemoglobin 29.2 PG (26-34); Mean Corpuscular Volume 88.1 fL (80-100); Monocytes Absolute Auto 900 /uL (0-900); Monocytes Percent Auto 8.4 % (3-14); Neutrophils Absolute Auto 5000 /uL (1500-7000); Neutrophils Percent Auto 48.5 % (50-75); Platelet Count 263 X10^3/uL (150-400); White Blood Cell Count 10.2 X10^3/uL (4.5-11.0)
[2020-09-01 16:47] LABS: Alanine Aminotransferase 44 IU/L (<35); Albumin 4.6 g/dL (3.5-5.0); Albumin Globulin Ratio 1.3 (1.0-2.8); Alkaline Phosphatase 71 U/L (38-126); Aspartate Aminotransferase 37 IU/L (14-36); Bilirubin Total 0.3 mg/dL (0.2-1.3); Blood Urea Nitrogen 23 mg/dL (7-17); Calcium 10.1 mg/dL (8.4-10.2); Carbon Dioxide 29 mmol/L (22-32); Chloride 100 mmol/L (98-107); Globulin 3.6 g/dL (1.7-4.1); Glucose 113 mg/dL (80-110); HEMOLYSIS < 15 (0-50); Potassium 4.1 mmol/L (3.4-5.1); Sodium 136 mmol/L (137-145); Total Protein 8.2 g/dL (6.3-8.2)
== END 2020-09-01 19:00 | disposition home or self-care (01) ==
PROVIDERS: Emergency Provider Emergency Medicine; PCP Physician Assistant Medical
DX: R51.9 Headache, unspecified (principal); R27.0 Ataxia, unspecified; I10 Essential (primary) hypertension; E78.5 Hyperlipidemia, unspecified
CPT/HCPCS: 36415; 70450; 70548; 70553; 80053; 85025; 96361; 96374; 96375; 99283; 99284; J1100; J1200; J2765

== ENCOUNTER → 2021-05-07 12:57 | Outpatient (CLI) | payer OTHER, SELFPAY ==
--- NOTE | 2021-05-07 12:59 | DI.CT.S_ITS ---
PROCEDURE: CT SOFT TISSUE NECK WO CON INDICATIONS: PAROTITIS TECHNIQUE: Non-contrast 3.0 mm axial sections acquired from the sella to the aortic arch. Additional oblique axial 3.0 mm sections acquired through the pharynx. 3 mm thick coronal and sagittal reformats were generated. For radiation dose reduction, the following was used: automated exposure control. COMPARISON: None. FINDINGS: Image quality: Excellent. Lymph nodes: No enlarged lymph nodes seen throughout the neck. Vessels: Non-opacified vessels appear normal in caliber. Neck spaces: The oropharynx, nasopharynx, and pharynx demonstrate no mucosal lesions. The vocal cords, false vocal cords, pyriform sinuses, epiglottis, vallecula, and tongue base all appear normal. Extramucosal spaces appear unremarkable. Glands: The parotid and submandibular glands demonstrate no inflammatory change or stones. No stones are identified within the ducts. Scattered areas of soft tissue density are present bilaterally with the majority suggestive of lymph nodes. However, bilateral posterior foci of more prominent soft tissue density are identified measuring 1.2 cm on the right series 2, image 28 as well as 0.8 cm on series 2, image 24 on the left. Thyroid gland is unremarkable . Miscellaneous: Visualized brain and orbits appear normal. Lung apices appear clear. Superficial soft tissues appear normal. IMPRESSION: 1. No inflammatory change or stones within the parotid glands or ducts. 2. Bilateral presumed parotid lymph nodes as above. However, single focus within both the left and right parotid glands demonstrate a non typical lymph node appearance. Differential includes pleomorphic adenoma, Warthin's tumor or less likely metastatic disease. Dictated by: Yenny Penny M.D. on 05/07/2021 at 17:22 Approved by: Yenny Penny M.D. on 05/07/2021 at 17:41
== END ==
PROVIDERS: PCP Physician Assistant Medical; Referring Provider Otolaryngology; Visit Provider Otolaryngology
DX: K11.20 Sialoadenitis, unspecified (principal)
CPT/HCPCS: 70490

== ENCOUNTER 2025-01-14 18:05 | Emergency (ER) | payer MEDICARE, SELFPAY ==
[2025-01-14 18:18] VITALS: BP 156/71; PULSE 90; RESP 16; TEMP 36.5; O2SAT 98; BMI 31.3
--- NOTE | 2025-01-14 18:22 | ED.ABDPAIN ---
HPI - Abdominal Pain General Chief Complaint: Urogenital-Female Stated Complaint: lower abd pain, painful urination Time Seen by Provider: 01/14/25 18:15 Source: patient, family, RN notes reviewed and old records reviewed Mode of arrival: Ambulatory Limitations: no limitations History of Present Illness HPI narrative: 64-year-old female history of hypothyroidism hypertension dyslipidemia, gout, [id number] diabetes who presents with complaint of dysuria, urgency frequency and a sense of incomplete emptying that is started Tuesday. She states quite uncomfortable she describes suprapubic pain. No fevers or chills. No nausea or vomiting. No chest pain or shortness of breath. No back or flank pain. Patient denies any changes to bowel movements, no diarrhea or constipation or black or bloody stools. No new vaginal bleeding. Patient has had prior total hysterectomy, appendectomy, bladder lift, bilateral ear surgery. No tobacco, no alcohol, no recreational drugs. Related Data Home Medications ?Medication ?Instructions ?Recorded ?Confirmed Bp Med 1 tab PO DAILY 04/17/19 04/17/19 Multivitamin 50 Plus 1 tab PO DAILY 04/17/19 04/17/19 Synthroid 1 tab PO DAILY 04/17/19 04/17/19 Vitamin C 1 tab PO DAILY 04/17/19 04/17/19 Vitamin D3 1 cap PO DAILY 04/17/19 04/17/19 atorvastatin 1 tab PO QPM 04/17/19 04/17/19 montelukast 1 tab PO DAILY 04/17/19 04/17/19 Previous Rx's ?Medication ?Instructions ?Recorded tramadol 50 mg tablet 50 mg PO Q6-8H PRN pain #10 tabs 01/14/20 cephalexin 500 mg capsule 500 mg PO TID 5 days #15 caps 01/14/25 phenazopyridine 200 mg tablet 200 mg PO TID PRN pain #6 tabs 01/14/25 (Pyridium) Allergies Allergy/AdvReac Type Severity Reaction Status Date / Time ibuprofen (From ADVIL) Allergy Unknown Verified 01/14/25 18:17 Iodine and Iodide Containing Allergy Unknown Verified 01/14/25 18:17 Produc (IODINE AND IODIDE CONTAINING PRODUC) Review of Systems Review of Systems ROS Unobtainable: All systems reviewed & are unremarkable except as noted in HPI and below Patient History Medical History Hypothyroidism (acquired) Hypertension Hyperlipidemia Patient denies significant medical history Pancreatitis, chronic Social History Smoking Status: Never smoker alcohol intake frequency: 0-2 drinks per day Exam Narrative Exam Narrative: GENERAL: Alert and oriented x three, female in mild distress HEENT: Head normocephalic, atraumatic, EOMI, pupils reactive, face symmetric, moist mucous membranes NECK: Supple, full range of motion CARDIOVASCULAR: Regular rate and rhythm without murmurs, rubs or gallops. RESPIRATORY: Breath sounds equal bilaterally, no wheezes rales or rhonchi. ABDOMEN: Soft, mild suprapubic tenderness. Normoactive bowel sounds all 4 quadrants. No guarding or rebound, rigidity, no mass : No CVA tenderness EXTREMITIES: Normal range of motion, no clubbing or edema. Neurovascularly intact NEUROLOGICAL: Cranial nerves II through XII grossly intact. Moving all extremities SKIN: Warm, dry, no petechiae, no rashes or lesions. Initial Vital Signs Initial Vital Signs: Vital Signs Temperature 97.7 F 01/14/25 18:18 Pulse Rate 90 01/14/25 18:18 Respiratory Rate 16 01/14/25 18:18 Blood Pressure 156/71 H 01/14/25 18:18 Pulse Oximetry 98 01/14/25 18:18 Oxygen Delivery Method Room Air 01/14/25 18:18 Course Orders Ordered: ED Orders 01/14/25 18:23 Urine Culture Stat Urine Microscopic Stat Discontinued Medications Cephalexin HCl (Cephalexin 250 Mg Capsule) 500 mg PO NOW ONE Stop: 01/14/25 18:34 Last Admin: 01/14/25 18:43 Dose: 500 mg Documented By: BT Phenazopyridine HCl (Phenazopyridine 100 Mg Tablet) 200 mg PO NOW ONE Stop: 01/14/25 18:22 Last Admin: 01/14/25 18:42 Dose: 200 mg Documented By: BT Vital Signs Vital signs: Vital Signs - 8 hr 01/14/25 18:18 Temperature 97.7 F Pulse Rate 90 Respiratory Rate 16 Blood Pressure 156/71 H Pulse Oximetry 98 Oxygen Delivery Method Room Air MDM - Abdominal Pain Lab Data Labs: Lab Results 01/14/25 Range/Units 18:23 Urine RBC 1-5/hpf (0-5/HPF) Urine WBC 30-100/hpf H (0-5/HPF) Ur Squamous Epith Cells 0-1 /hpf (0-5/HPF) Urine Bacteria Moderate (10-30) H (None) Ur Culture Indicated? Specimen cultured Vol Urine Centrifuged 10ml (spun) Point of care testing: Urine Dip Bedside Urine Glucose Negative Bedside Urine Bilirubin - Negative Bedside Urine Ketone - Negative Urine Specific [place] 1.010 Bedside Urine Occult Blood +++ Bedside Urine pH 6.0 Bedside Urine Protein +/- 15 Bedside Urine Urobilinogen - Negative Bedside Urine Nitrite - Negative Bedside Urine Leukocytes +++ 500 Esterase MDM Narrative Medical decision making narrative: 64-year-old female with urinary frequency, a sense of urgency, incomplete emptying and dysuria. No changes to vitals or symptoms consistent with sepsis. We will start on oral antibiotics after review urine sample. Urine sample, point of care urine shows blood, leukocyte esterase. Urine microscopy shows 1-5 RBCs 30-100 WBCs 1 squamous moderate bacteria was sent for culture. Received a dose of Pyridium and keflex. Discharge Plan Departure Patient Disposition: Home Clinical Impression: UTI (urinary tract infection) Instructions: DI for Urinary Tract Infection (UTI) Activity Restrictions/Additional Instructions: Follow up for recheck if your symptoms do not completely resolve. Take oral antibiotics until completed. You can take Pyridium 1 tablet every 6 hours as needed. This medication is for bladder spasm and discomfort. It will make your urine orange. Prescription sent to [facility] in [place]. Please return for fevers, new or worsening abdominal back or flank pain, persistent vomiting, lightheadedness or passing out, inability to urinate, new back abdominal or flank pain or other new or concerning changes. Prescriptions: New cephalexin 500 mg capsule 500 mg PO TID 5 Days Qty: 15 0RF phenazopyridine [Pyridium] 200 mg tablet 200 mg PO TID PRN (Reason: pain) Qty: 6 0RF No Action Bp Med 1 tab PO DAILY Patient Comments: new med given to replace lisinopril Multivitamin 50 Plus 1 tab PO DAILY Synthroid 1 tab PO DAILY Vitamin C 1 tab PO DAILY Vitamin D3 1 cap PO DAILY atorvastatin 1 tab PO QPM montelukast 1 tab PO DAILY tramadol 50 mg tablet 50 mg PO Q6-8H PRN (Reason: pain) Qty: 10 0RF Referrals: Divya Ceja PA-C [Primary Care Provider, Medical] Stand Alone Forms: Patient Portal/API
[2025-01-14 18:40] LABS: Culture Indicated Urine Specimen Cultured
[2025-01-14] MEDS: PHENAZOPYRIDINE 100 MG TABLET 200 MG PO (18:42)
== END 2025-01-14 19:00 | disposition home or self-care (01) ==
PROVIDERS: Emergency Provider Emergency Medicine; PCP Physician Assistant Medical
DX: N39.0 Urinary tract infection, site not specified (principal)
CPT/HCPCS: 81003; 81015; 87077; 87086; 87186; 99283